=== PATIENT | female | born 1985 | race Caucasian/White ===

== ENCOUNTER 2023-03-09 21:48 | Emergency (ER) | payer MEDICAID, SELFPAY ==
[2023-03-09 21:56] VITALS: BP 144/96; PULSE 78; RESP 18; TEMP 35.9; O2SAT 100; BMI 25.8
--- NOTE | 2023-03-09 22:13 | ED.NAVMDI ---
HPI - Nausea/Vomiting/Diarrhea General Chief complaint: Nausea/Vomiting Stated complaint: Terrible flu symptoms Time Seen by Provider: 03/09/23 22:08 History of Present Illness HPI Narrative: This 37-year-old female comes in reporting recurrent nausea and vomiting over the past 2 or 3 hours. She thinks that she has vomited perhaps 20 times in this time frame. Prior to this she was feeling normal. She has a daughter who had some vomiting symptoms recently but otherwise does not know of any sick exposures. She does not report any fevers or dysuria symptoms. She does have some coughing but does not report any shortness of breath. Related Data Home Medications Medication Instructions Recorded Confirmed levonorgestrel 21 mcg/24 hours (8 1 device intrauterine ONCE 02/03/22 03/09/23 yrs) 52 mg intrauterine device (Mirena) Previous Rx's Medication Instructions Recorded lamotrigine 150 mg tablet 150 mg PO DAILY #90 tabs 01/21/23 levomilnacipran 80 mg capsule,24 80 mg PO DAILY #90 caps 01/21/23 hr,extended release (Fetzima) valacyclovir 500 mg tablet 500 mg PO BID #10 tabs 01/21/23 dextroamphetamine-amphetamine 20 30 mg (1.5 x 20 mg) PO BID #90 tabs 02/10/23 mg tablet Allergies Allergy/AdvReac Type Severity Reaction Status Date / Time codeine Allergy Severe airway Verified 07/14/22 11:15 swelling haloperidol Allergy Severe throat Verified 07/14/22 11:15 swelling dexamethasone Allergy Intermediate crawling Verified 07/14/22 11:15 out of her skin Penicillins Allergy Unknown Verified 07/14/22 11:15 Review of Systems Status of ROS: Reports: 10 or more systems reviewed and unremarkable except as noted in History and below Narrative: Constitutional: No fevers, no weight gain or loss. Eyes: No discharge. No vision changes. HENT: No congestion, no sore throat, no ear pain. Cardiovascular: No chest pain, no palpitations. Respiratory: No shortness of breath, no wheezes, no cough. Gastrointestinal: Diffuse upper epigastric abdominal pain related to vomiting. Frequent vomiting and nausea symptoms. No diarrhea. Genitourinary: No dysuria, no hematuria. Musculoskeletal: Normal range of motion. Skin: No rashes, no pruritis. Neurological: No dizziness, weakness, sensory change, speech change. Endo/Heme/Allergies: No bruising or bleeding. No polydipsia. Pysch: no suicidality, no anxiety, no insomnia. All other systems reviewed and are negative. [facility] Surgical History History of laparoscopy History of tonsillectomy Social History (Updated 01/21/23 @ 15:22 by Rosa Lewis ~ [facility], [facility]) What is your current living situation?: I presently have a place to live Problems where you live: no known problems In the past 12 months, utilities in danger of being shut off: no How hard is it for you to pay for the very basics like food, housing, medical care, and heating: not very hard In the past 12 mos, have been you worried that your food would run out before you had money to buy more?: never true In the past 12 mos, the food you bought just didn't last and you didn't have money to buy more?: never true Are you following a diet prescribed by a doctor: No Are you following a special diet: No Do you want help finding or keeping work or a job: I do not need or want help Smoking Status: Current every day smoker Second hand tobacco smoke exposure: Yes Non-prescribed substance use: denies use How often does anyone, including family, friends and others, physically hurt you: never How often does anyone, including family, friends and others, insult or talk down to you: never How often does anyone, including family, friends and others, threaten you with harm: never How often does anyone, including family, friends and others, scream or curse at you: never Little interest or pleasure in doing things: not at all Feeling down, depressed, or hopeless: not at all Exam Const: Vital Signs, click to edit/add: Vital Signs - 24 hr 03/09/23 21:56 Temperature 96.6 F L Pulse Rate [Pulse Oximeter] 78 Respiratory Rate 18 Blood Pressure [Ri ght Upper Arm] 144/96 H Pulse Oximetry 100 Oxygen Delivery Me thod Room Air Course Vital Signs Vital signs: Initial Vital Signs Temperature 96.6 F L 03/09/23 21:56 Temperature Source Temporal Artery Scan 03/09/23 21:56 Pulse Rate 78 03/09/23 21:56 Respiratory Rate 18 03/09/23 21:56 Blood Pressure 144/96 H 03/09/23 21:56 Blood Pressure Mean 112 H 03/09/23 21:56 Blood Pressure Position Sitting 03/09/23 21:56 Pulse Oximetry 100 03/09/23 21:56 Oxygen Delivery Method Room Air 03/09/23 21:56 Vital Signs Temperature 96.6 F L 03/09/23 21:56 Pulse Rate 78 03/09/23 21:56 Respiratory Rate 18 03/09/23 21:56 Blood Pressure 144/96 H 03/09/23 21:56 Pulse Oximetry 100 03/09/23 21:56 Oxygen Delivery Method Room Air 03/09/23 21:56 Temperature 96.6 F L 03/09/23 21:56 Pulse Rate 78 03/09/23 21:56 Respiratory Rate 18 03/09/23 21:56 Blood Pressure 144/96 H 03/09/23 21:56 Pulse Oximetry 100 03/09/23 21:56 Oxygen Delivery Method Room Air 03/09/23 21:56 MDM - Nausea/Vomiting/Diarrhea MDM Narrative Medical decision making narrative: This patient comes in with symptoms of persistent vomiting over the past several hours. An IV was established where she received a L of normal saline and 4 mg of Zofran. This brought great relief to her symptoms. Lab results returned with reassuring findings. Her sodium and potassium were just slightly low. She is okay to be discharged home. She requested something to help her sleep tonight so she did receive Benadryl 25 mg intravenously. A prescription for Zofran is provided from the [facility]. Lab Data Labs: Lab Results 03/09/23 Range/Units 22:30 WBC 8.46 (4.50-11.00) K/uL RBC 4.37 (4.00-5.20) m/uL Hgb 13.9 (12.0-16.0) gm/dL Hct 40.9 (33.0-51.0) % MCV 94 (80-100) fL MCH 32 (26-34) pg MCHC 34 (32-36) gm/dL RDW Coeff of [place] 13.9 (11.5-15.5) % Plt Count 193 (140-440) K/uL Neut % (Auto) 77.9 H (42.0-72.0) % Lymph % (Auto) 16.0 L (20-44) % [place] % (Auto) 4.7 (0.0-11.0) % Eos % (Auto) 0.4 (0.0-7.0) % Baso % (Auto) 0.2 (0.0-3.0) % Neut # (Auto) 6.60 (1.7-7.0) K/uL Lymph # (Auto) 1.40 (0.90-2.90) K/uL [place] # (Auto) 0.40 (0.00-0.90) K/UL Eos # (Auto) 0.03 (0.00-0.50) K/uL Baso # (Auto) 0.02 (0.00-0.30) K/uL Abs Immat Gran (auto) 0.07 (0.00-0.30) K/uL Imm/Tot Granulo (auto) 0.8 % Sodium 133 L (135-149) mmol/L Potassium 3.5 L (3.6-5.1) mmol/L Chloride 98 (96-114) mmol/L Carbon Dioxide 26 (20-32) mmol/L BUN 16 (5-24) mg/dL Creatinine 0.7 (0.5-1.5) mg/dL Estimated Creat Clear 105.97 Estimated GFR 113 ml/min Glucose 85 (60-115) mg/dL Calcium 8.6 (8.4-10.6) mg/dL Discharge Plan Discharge Clinical Impression: Gastroenteritis Patient Disposition: Home w/ Parent or Adult Condition: Improved Additional Instructions: Take liquids and increase diet as tolerated. Use Zofran as needed and directed for nausea symptoms. Follow up with MD or return if worsening. Prescriptions: No Action lamotrigine 150 mg tablet 150 mg PO DAILY Qty: 90 3RF Fetzima 80 mg capsule,extended release 24 hr 80 mg PO DAILY Qty: 90 3RF valacyclovir 500 mg tablet 500 mg PO BID Qty: 10 6RF Mirena 20 mcg/24 hours (7 yrs) 52 mg intrauterine device 1 device intrauterine ONCE Rx Instructions: as a single dose dextroamphetamine-amphetamine 20 mg tablet 30 mg PO BID Qty: 90 0RF Rx Instructions: administer doses at least 4-6 hours apart Follow Up/Referrals: Ab Alejo MD [Primary Care Provider] - Stand Alone Forms: [employer] Info Instructions
[2023-03-09] MEDS: 0.9 % SODIUM CHLORIDE 1000 ml 1,000 ML IV (22:32)
[2023-03-09] MEDS: ONDANSETRON 2 MG/ML inj 4 MG IVP (22:32)
[2023-03-09 22:40] LABS: Basophils Absolute Auto 0.02 K/uL (0.00-0.30); Basophils Percent Auto 0.2 % (0.0-3.0); Eosinophils Absolute Auto 0.03 K/uL (0.00-0.50); Eosinophils Percent Auto 0.4 % (0.0-7.0); Hematocrit 40.9 % (33.0-51.0); Hemoglobin* 13.9 gm/dL (12.0-16.0); Immature Granulocytes Abs Auto 0.07 K/uL (0.00-0.30); Immature Granulocytes Pct Auto 0.8 %; Mean Corpuscular HGB Conc 34 gm/dL (32-36); Mean Corpuscular Hemoglobin 32 pg (26-34); Mean Corpuscular Volume 94 fL (80-100); Monocytes Percent Auto 4.7 % (0.0-11.0); Neutrophils Percent Auto 77.9 % (42.0-72.0); Platelet Count* 193 K/uL (140-440); RDW Coefficient of Variation % 13.9 % (11.5-15.5); Red Blood Count 4.37 m/uL (4.00-5.20); White Blood Count* 8.46 K/uL (4.50-11.00)
[2023-03-09 22:42] LABS: Slide Review Reflex No
[2023-03-09 22:54] LABS: Sodium* 133 mmol/L (135-149)
[2023-03-09 22:57] LABS: Blood Urea Nitrogen* 16 mg/dL (5-24); Creatinine* 0.7 mg/dL (0.5-1.5); Est. Creatinine Clearance* 105.97; Estimated Glomerular Filt Rate 113 ml/min
[2023-03-09 23:29] LABS: Calcium* 8.6 mg/dL (8.4-10.6); Carbon Dioxide* 26 mmol/L (20-32); Chloride* 98 mmol/L (96-114); Glucose* 85 mg/dL (60-115); Potassium* 3.5 mmol/L (3.6-5.1)
[2023-03-09] MEDS: diphenhydrAMINE 50 MG/ML inj 25 MG IVP (23:47)
== END 2023-03-09 23:52 | disposition home or self-care (01) ==
PROVIDERS: Emergency Provider Emergency Medicine Emergency Medical Services; PCP Family Medicine
DX: K52.9 Noninfective gastroenteritis and colitis, unspecified (principal)
CPT/HCPCS: 36415; 80048; 85025; 96374; 96375; 99283; 99284; J1200; J2405; J7030

== ENCOUNTER 2023-06-30 11:44 | Emergency (ER) | payer MEDICAID, SELFPAY ==
[2023-06-30 11:56] VITALS: BP 130/90; PULSE 88; RESP 18; TEMP 36.8; O2SAT 98; BMI 25.1
--- NOTE | 2023-06-30 12:57 | ED_ITS ---
HPI - General Adult General Time Seen by Provider: 12:57 Date Seen: 06/30/23 Chief complaint: Nausea/Vomiting Stated complaint: nausea / vomiting Time Seen by Provider: 06/30/23 11:46 Source: patient Mode of arrival: ambulatory Limitations: no limitations History of Present Illness HPI narrative: Patient is a 37 year old female who has got nausea and vomiting over the last few weeks. She has history of ADD depression endometriosis, and has had nausea and vomiting over the last few weeks. She can associated with anything. She has got some sore abdomen from retching but otherwise has no abdominal pain, no fever, no hematuria, no dysuria, no melena hematochezia or diarrhea. The patient has been able to eat. She presents to ER for evaluation. She denies pr egnancy. Related Data Home Medications Medication Instructions Recorded Confirmed levonorgestrel 21 mcg/24 hours (8 1 device intrauterine ONCE 02/03/22 06/30/23 yrs) 52 mg intrauterine device (Mirena) Previous Rx's Medication Instructions Recorded lamotrigine 150 mg tablet 150 mg PO DAILY #90 tabs 01/21/23 levomilnacipran 80 mg capsule,24 80 mg PO DAILY #90 caps 01/21/23 hr,extended release (Fetzima) valacyclovir 500 mg tablet 500 mg PO BID #10 tabs 01/21/23 dextroamphetamine-amphetamine 20 30 mg (1.5 x 20 mg) PO BID #90 tabs 06/11/23 mg tablet ondansetron 4 mg disintegrating 4 mg PO Q8H PRN nausea and 06/30/23 tablet vomiting 4 days #7 tabs Allergies Allergy/AdvReac Type Severity Reaction Status Date / Time codeine Allergy Severe airway Verified 07/14/22 11:15 swelling haloperidol Allergy Severe throat Verified 07/14/22 11:15 swelling dexamethasone Allergy Intermediate crawling Verified 07/14/22 11:15 out of her skin Penicillins Allergy Unknown Verified 07/14/22 11:15 Review of Systems Status of ROS: Reports: 6 or more systems reviewed and unremarkable except as noted in History and below [facility] Surgical History History of tonsillectomy ?Z90.89 - Acquired absence of other organs (ICD-10) History of laparoscopy ?Z98.890 - Other specified postprocedural states (ICD-10) Social History What is your current living situation?: I presently have a place to live Problems where you live: no known problems In the past 12 months, utilities in danger of being shut off: no In past 12 months, lack of transportation kept you from medical appts, meetings, work, or getting things needed for daily living: no How hard is it for you to pay for the very basics like food, housing, medical care, and heating: not very hard In the past 12 mos, have been you worried that your food would run out before you had money to buy more?: never true In the past 12 mos, the food you bought just didn't last and you didn't have money to buy more?: never true Are you following a diet prescribed by a doctor: No Are you following a special diet: No Do you want help finding or keeping work or a job: I do not need or want help Smoking Status: Current every day smoker Second hand tobacco smoke exposure: Yes How often do you have a drink containing alcohol: 2-4 times a month How often do you have six or more drinks on one occasion: Never AUDIT-C Alcohol total score: 2 Non-prescribed substance use: denies use How often does anyone, including family, friends and others, physically hurt you : never How often does anyone, including family, friends and others, insult or talk down to you: never How often does anyone, including family, friends and others, threaten you with harm: never How often does anyone, including family, friends and others, scream or curse at you: never Little interest or pleasure in doing things: not at all Feeling down, depressed, or hopeless: not at all Exam Narrative: Exam Narrative: Objective: Vital signs are normal, no fever Patient is awake, alert, and non distress. HEENT is unremarkable mouth well hydrated neck is supple Chest is clear Pulses regular Abdomen benign soft nontender Extremities are no edema neurologic nonfocal Skin periphery is warm and dry. Const: Vital Signs, click to edit/add: Vital Signs - 24 hr 06/30/23 11:56 06/30/23 13:33 06/30/23 15:06 Temperature 98.3 F Pulse Rate [Right Pulse Oximeter] 88 90 79 Respiratory Rate 18 Blood Pressure [Ri ght Upper Arm] 130/90 H 136/93 H 137/85 Pulse Oximetry 98 97 99 Oxygen Delivery Me thod Room Air Room Air Room Air Course Vital Signs Vital signs: Initial Vital Signs Temperature 98.3 F 06/30/23 11:56 Temperature Source Temporal Artery Scan 06/30/23 11:56 Pulse Rate 88 06/30/23 11:56 Respiratory Rate 18 06/30/23 11:56 Blood Pressure 130/90 H 06/30/23 11:56 Blood Pressure Mean 103 06/30/23 11:56 Blood Pressure Position Sitting 06/30/23 11:56 Pulse Oximetry 98 06/30/23 11:56 Oxygen Delivery Method Room Air 06/30/23 11:56 Vital Signs Temperature 98.3 F 06/30/23 11:56 Pulse Rate 88 06/30/23 11:56 Respiratory Rate 18 06/30/23 11:56 Blood Pressure 130/90 H 06/30/23 11:56 Pulse Oximetry 98 06/30/23 11:56 Oxygen Delivery Method Room Air 06/30/23 11:56 Temperature 98.3 F 06/30/23 11:56 Pulse Rate 79 06/30/23 15:06 Respiratory Rate 18 06/30/23 11:56 Blood Pressure 137/85 06/30/23 15:06 Pulse Oximetry 99 06/30/23 15:06 Oxygen Delivery Method Room Air 06/30/23 15:06 Medications Administered Medications: Discontinued Medications Generic Name Dose Route Start Last Admin Trade Name Freq PRN Reason Stop Dose Admin Sodium Chloride 1,000 mls @ 6,000 mls/hr 06/30/23 13:45 06/30/23 14:41 0.9 % Sodium Chloride 1000 Ml IV 06/30/23 13:54 Infused .Q10M [facility]ADYS Infusion Ondansetron HCl 4 mg 06/30/23 13:32 06/30/23 14:02 Ondansetron 2 Mg/Ml Inj IVP 06/30/23 13:33 4 mg ONCE ONE Administration Medical Decision Making [facility] Narrative Medical decision making narrative: 37-year-old female with nausea and vomiting intermittent over a few weeks. Unclear etiology. Patient really has no abdominal pain, no weight loss, no worrisome symptoms. I think at this time some IV fluids some IV Zofran laboratory studies including urinalysis be appropriate and test. D isposition pending findings above. She was comfortable this assessment. Addendum 2:53 p.m. the patient feels markedly better. Will come fax in some Zofran for her to have at home, her labs look reassuring, including negative CRP, normal liver function tests, CBC looks unremarkable, ER profile unremarkable, test negative. Urine test is pending as well as viral studies. Think we can let her go home with some Zofran we can call her with the result viral as study results in the urinalysis. Recommend recheck with regular doctor for continued assessment of her intermittent nausea and vomiting. Lab Data Labs: Lab Results 06/30/23 Range/Units 13:45 WBC 5.44 (4.50-11.00) K/uL RBC 4.24 (4.00-5.20) m/uL Hgb 13.4 (12.0-16.0) gm/dL Hct 40.3 (33.0-51.0) % MCV 95 (80-100) fL MCH 32 (26-34) pg MCHC 33 (32-36) gm/dL RDW Coeff of Jairo 13.4 (11.5-15.5) % Plt Count 272 (140-440) K/uL Neut % (Auto) 58.8 (42.0-72.0) % Lymph % (Auto) 32.5 (20-44) % [place] % (Auto) 6.1 (0.0-11.0) % Eos % (Auto) 1.8 (0.0-7.0) % Baso % (Auto) 0.6 (0.0-3.0) % Neut # (Auto) 3.20 (1.7-7.0) K/uL Lymph # (Auto) 1.77 (0.90-2.90) K/uL [place] # (Auto) 0.30 (0.00-0.90) K/UL Eos # (Auto) 0.10 (0.00-0.50) K/uL Baso # (Auto) 0.03 (0.00-0.30) K/uL Abs Immat Gran (auto) 0.01 (0.00-0.30) K/uL Imm/Tot Granulo (auto) 0.2 % Sodium 136 (135-149) mmol/L Potassium 4.0 (3.6-5.1) mmol/L Chloride 104 (96-114) mmol/L Carbon Dioxide 25 (20-32) mmol/L Anion Gap 7 (7-15) mEq/L BUN 10 (5-24) mg/dL Creatinine 0.7 (0.5-1.5) mg/dL Estimated Creat Clear 105.97 Estimated GFR 113 ml/min Glucose 77 (60-115) mg/dL Calcium 8.4 (8.4-10.6) mg/dL Total Bilirubin 0.6 (0.1-1.5) mg/dL Direct Bilirubin 0.0 (0.0-0.5) mg/dL AST 21 (12-35) U/L ALT 12 (4-35) U/L Alkaline Phosphatase 72 (40-150) U/L C-Reactive Protein < 0.5 L (0.5-1.0) mg/dL Total Protein 7.2 (6.0-8.3) g/dL Albumin 4.3 (3.3-5.0) g/dL Amylase 92 H (18-89) U/L HCG, Qual Negative (Negative) SARS-CoV-2 (PCR) Negative SARS-CoV-2 (Negative) Influenza Type A (PCR) Negative PCR FLU A (Negative) Influenza Type B (PCR) Negative PCR FLU B (Negative) RSV (PCR) Negative PCR RSV (Negative) Discharge Plan Discharge Clinical Impression: Nausea & vomiting Patient Disposition: Home, Self-Care Condition: Improved Additional Instructions: Light activity, off work for 2 days, Zofran as needed for nausea, light diet. Recommend recheck with regular doctor in 3-4 days for reassessment, sooner return to ED as problems or concerns. We can call you back with your viral studies. Activity Level: Light activity Discharge Diet: Full Liquid Diet Detail: Advance diet as tolerated Prescriptions: New ondansetron 4 mg tablet,disintegrating 4 mg PO Q8H PRN (Reason: nausea and vomiting) 4 Days Qty: 7 0RF No Action lamotrigine 150 mg tablet 150 mg PO DAILY Qty: 90 3RF Fetzima 80 mg capsule,extended release 24 hr 80 mg PO DAILY Qty: 90 3RF valacyclovir 500 mg tablet 500 mg PO BID Qty: 10 6RF Mirena 20 mcg/24 hours (7 yrs) 52 mg intrauterine device 1 device intrauterine ONCE Rx Instructions: as a single dose dextroamphetamine-amphetamine 20 mg tablet 30 mg PO BID Qty: 90 0RF Rx Instructions: administer doses at least 4-6 hours apart Follow Up/Referrals: Ab Alejo MD [Primary Care Provider] - Stand Alone Forms: [employer] Info Instructions
[2023-06-30 13:33] VITALS: BP 136/93; PULSE 90; O2SAT 97
[2023-06-30 13:58] LABS: Basophils Absolute Auto 0.03 K/uL (0.00-0.30); Basophils Percent Auto 0.6 % (0.0-3.0); Eosinophils Percent Auto 1.8 % (0.0-7.0); Hematocrit 40.3 % (33.0-51.0); Hemoglobin* 13.4 gm/dL (12.0-16.0); Immature Granulocytes Abs Auto 0.01 K/uL (0.00-0.30); Immature Granulocytes Pct Auto 0.2 %; Lymphocytes Absolute Auto 1.77 K/uL (0.90-2.90); Lymphocytes Percent Auto 32.5 % (20-44); Mean Corpuscular HGB Conc 33 gm/dL (32-36); Mean Corpuscular Hemoglobin 32 pg (26-34); Mean Corpuscular Volume 95 fL (80-100); Monocytes Percent Auto 6.1 % (0.0-11.0); Neutrophils Percent Auto 58.8 % (42.0-72.0); Platelet Count* 272 K/uL (140-440); RDW Coefficient of Variation % 13.4 % (11.5-15.5); Red Blood Count 4.24 m/uL (4.00-5.20); White Blood Count* 5.44 K/uL (4.50-11.00)
[2023-06-30] MEDS: ONDANSETRON 2 MG/ML inj 4 MG IVP (14:02)
[2023-06-30] MEDS: 0.9 % SODIUM CHLORIDE 1000 ml 1,000 ML 6000 ML IV (14:02)
[2023-06-30 14:07] LABS: Slide Review Reflex No
[2023-06-30 14:10] LABS: Chloride* 104 mmol/L (96-114)
[2023-06-30 14:11] LABS: Albumin* 4.3 g/dL (3.3-5.0); Sodium* 136 mmol/L (135-149)
[2023-06-30 14:13] LABS: Amylase* 92 U/L (18-89)
[2023-06-30 14:14] LABS: Alkaline Phosphatase* 72 U/L (40-150); Anion Gap 7 mEq/L (7-15); Aspartate Amino Transferase* 21 U/L (12-35); Bilirubin Total* 0.6 mg/dL (0.1-1.5); Blood Urea Nitrogen* 10 mg/dL (5-24); Carbon Dioxide* 25 mmol/L (20-32); Creatinine* 0.7 mg/dL (0.5-1.5); Est. Creatinine Clearance* 105.97; Estimated Glomerular Filt Rate 113 ml/min; Glucose* 77 mg/dL (60-115); Total Protein* 7.2 g/dL (6.0-8.3)
[2023-06-30 14:15] LABS: Alanine Aminotransferase* 12 U/L (4-35); Calcium* 8.4 mg/dL (8.4-10.6)
[2023-06-30 14:19] LABS: C Reactive Protein* < 0.5 mg/dL (0.5-1.0)
[2023-06-30 14:25] LABS: HCG Qualitative Serum* Negative (Negative)
[2023-06-30 14:32] LABS: PCR FLU A Negative PCR FLU A (Negative); PCR FLU B Negative PCR FLU B (Negative); PCR RSV Negative PCR RSV (Negative)
[2023-06-30 14:53] LABS: Appearance Urine Cloudy (Clear); Bilirubin Urine Negative (Negative); Blood Urine Trace-intact (Negative); Color Urine Yellow (Yellow); Glucose Urine Negative (Negative); Ketones Urine Negative (Negative); Leukocyte Esterase Urine Negative (Negative); Nitrite Urine Negative (Negative); Protein Urine Negative (Negative); pH Urine 7.5 (5.0-8.5)
[2023-06-30 15:06] VITALS: BP 137/85; PULSE 79; O2SAT 99
--- NOTE | 2023-06-30 15:11 | ED.NURSE ---
discharge instructions updated after pt was discharged, information writer called pt and left voicemail asking to call the information writer back.
[2023-06-30 15:12] LABS: SARS PCR* Negative SARS-CoV-2 (Negative)
[2023-06-30 15:22] LABS: Amorphous Sediment Urine Many; Bacteria Urine Few; Mucus Urine Few; Squamous Epithelial Cell Urine Few (None-Few)
--- NOTE | 2023-06-30 15:36 | ED.NURSE ---
pt called back, fiction writer notified pt of new discharge instructions and that there is a RX available for fruit picker at preferred pharmacy
== END 2023-06-30 15:07 | disposition home or self-care (01) ==
PROVIDERS: Emergency Provider Family Medicine; PCP Family Medicine
DX: R11.2 Nausea with vomiting, unspecified (principal)
CPT/HCPCS: 36415; 80048; 80076; 81001; 82150; 84703; 85025; 86140; 87086; 87631; 96374; 99283; 99284; J2405; J7030

== ENCOUNTER 2023-09-23 13:07 | Emergency (ER) | payer MEDICAID, SELFPAY ==
[2023-09-23 13:15] VITALS: BP 142/95; PULSE 95; RESP 18; TEMP 36.4; O2SAT 98; BMI 25.1
[2023-09-23 14:05] LABS: PCR FLU A Negative PCR FLU A (Negative); PCR FLU B POSITIVE PCR FLU B (Negative); PCR RSV Negative PCR RSV (Negative); SARS PCR* Negative SARS-CoV-2 (Negative)
--- NOTE | 2023-09-27 10:39 | ED_ITS ---
HPI - General Adult General Date Seen: 09/27/23 Chief complaint: Fever Stated complaint: body aches, fever, cough Time Seen by Provider: 09/23/23 14:10 Source: patient Mode of arrival: ambulatory Limitations: no limitations History of Present Illness HPI narrative: Patient is a 37-year-old with a 5 day history of flu symptoms, her daughter has influenza and she wanted to be tested. No significant shortness of breath, eating and drinking okay, no other complaints. Related Data Home Medications Medication Instructions Recorded Confirmed levonorgestrel 21 mcg/24 hours (8 1 device intrauterine ONCE 02/03/22 08/16/23 yrs) 52 mg intrauterine device (Mirena) Previous Rx's Medication Instructions Recorded lamotrigine 150 mg tablet 150 mg PO DAILY #90 tabs 01/21/23 levomilnacipran 80 mg capsule,24 80 mg PO DAILY #90 caps 01/21/23 hr,extended release (Fetzima) valacyclovir 500 mg tablet 500 mg PO BID #10 tabs 01/21/23 ondansetron 4 mg disintegrating 4 mg PO Q8H PRN nausea and 06/30/23 tablet vomiting 4 days #7 tabs montelukast 10 mg tablet 10 mg PO QDAY #30 tabs 08/30/23 dextroamphetamine-amphetamine 20 30 mg (1.5 x 20 mg) PO BID #90 tabs 09/08/23 mg tablet Allergies Allergy/AdvReac Type Severity Reaction Status Date / Time codeine Allergy Severe airway Verified 08/16/23 12:57 swelling haloperidol Allergy Severe throat Verified 08/16/23 12:57 swelling dexamethasone Allergy Intermediate crawling Verified 08/16/23 12:57 out of her skin Penicillins Allergy Unknown Verified 08/16/23 12:57 PFSH PFS Surgical History History of tonsillectomy ?Z90.89 - Acquired absence of other organs (ICD-10) History of laparoscopy ?Z98.890 - Other specified postprocedural states (ICD-10) Social History What is your current living situation?: I presently have a place to live Problems where you live: no known problems In the past 12 months, utilities in danger of being shut off: no In past 12 months, lack of transportation kept you from medical appts, meetings, work, or getting things needed for daily living: no How hard is it for you to pay for the very basics like food, housing, medical care, and heating: not very hard In the past 12 mos, have been you worried that your food would run out before you had money to buy more?: never true In the past 12 mos, the food you bought just didn't last and you didn't have money to buy more?: never true Are you following a diet prescribed by a doctor: No Are you following a special diet: No Do you want help finding or keeping work or a job: I do not need or want help Smoking Status: Current every day smoker Second hand tobacco smoke exposure: Yes How often do you have a drink containing alcohol: 2-4 times a month How often do you have six or more drinks on one occasion: Never AUDIT-C Alcohol total score: 2 Non-prescribed substance use: denies use How often does anyone, including family, friends and others, physically hurt you : never How often does anyone, including family, friends and others, insult or talk down to you: never How often does anyone, including family, friends and others, threaten you with harm: never How often does anyone, including family, friends and others, scream or curse at you: never Little interest or pleasure in doing things: not at all Feeling down, depressed, or hopeless: not at all Exam Narrative: Exam Narrative: Vital signs as noted above. In general, an alert, well-appearing patient. Head: Normocephalic, atraumatic. Eyes: Pupils are equal reactive. Extraocular movements are full. Conjunctivae are normal. ENT: Mucous membranes are moist. Throat is normal. Neck: Supple without lymphadenopathy. Heart: Regular rate and rhythm. No murmur or rub. Lungs: Clear bilaterally. No increased work of breathing, crackles or wheezes. Neurologic: Patient is alert and oriented to person and place. Speech is fluent. Face is symmetric. Moves all extremities equally. Affect: Normal. Skin: Warm and dry. Well perfused. Course Course ED Course: Viral swab positive for influenza B. Outside the window of treatment. Supportive care, return for worsening, anticipate gradual improvement over the next week. Vital Signs Vital signs: Initial Vital Signs Temperature 97.5 F L 09/23/23 13:15 Temperature Source Temporal Artery Scan 09/23/23 13:15 Pulse Rate 95 09/23/23 13:15 Respiratory Rate 18 09/23/23 13:15 Blood Pressure 142/95 H 09/23/23 13:15 Blood Pressure Mean 110 H 09/23/23 13:15 Blood Pressure Position Sitting 09/23/23 13:15 Pulse Oximetry 98 09/23/23 13:15 Oxygen Delivery Method Room Air 09/23/23 13:15 Vital Signs Temperature 97.5 F L 09/23/23 13:15 Pulse Rate 95 09/23/23 13:15 Respiratory Rate 18 09/23/23 13:15 Blood Pressure 142/95 H 09/23/23 13:15 Pulse Oximetry 98 09/23/23 13:15 Oxygen Delivery Method Room Air 09/23/23 13:15 Temperature 97.5 F L 09/23/23 13:15 Pulse Rate 95 09/23/23 13:15 Respiratory Rate 18 09/23/23 13:15 Blood Pressure 142/95 H 09/23/23 13:15 Pulse Oximetry 98 09/23/23 13:15 Oxygen Delivery Method Room Air 09/23/23 13:15 Medical Decision Making Lab Data Labs: Lab Results 09/23/23 Range/Units 13:20 SARS-CoV-2 (PCR) Negative SARS-CoV-2 (Negative) Influenza Type A (PCR) Negative PCR FLU A (Negative) Influenza Type B (PCR) POSITIVE PCR FLU B A (Negative) RSV (PCR) Negative PCR RSV (Negative) Discharge Plan Discharge Clinical Impression: Influenza Patient Disposition: Home, Self-Care Condition: Stable Instructions: Influenza (DC) Additional Instructions: Ibuprofen and/or Tylenol as needed for fever, aches etcetera. Primary care follow-up if no improvement over the next 7-10 days, sooner for worsening. Prescriptions: No Action lamotrigine 150 mg tablet 150 mg PO DAILY Qty: 90 3RF Fetzima 80 mg capsule,extended release 24 hr 80 mg PO DAILY Qty: 90 3RF valacyclovir 500 mg tablet 500 mg PO BID Qty: 10 6RF ondansetron 4 mg tablet,disintegrating 4 mg PO Q8H PRN (Reason: nausea and vomiting) 4 Days Qty: 7 0RF Mirena 20 mcg/24 hours (7 yrs) 52 mg intrauterine device 1 device intrauterine ONCE Rx Instructions: as a single dose montelukast 10 mg tablet 10 mg PO QDAY Qty: 30 6RF dextroamphetamine-amphetamine 20 mg tablet 30 mg PO BID Qty: 90 0RF Rx Instructions: administer doses at least 4-6 hours apart Follow Up/Referrals: Ab Alejo MD [Primary Care Provider] - Stand Alone Forms: [facility] Info Instructions
== END 2023-09-23 14:26 | disposition home or self-care (01) ==
LOC: ED 14:23
PROVIDERS: Emergency Provider Emergency Medicine; PCP Family Medicine
DX: J10.1 Influenza due to other identified influenza virus with other respiratory manifestations (principal)
CPT/HCPCS: 87631; 99283

== ENCOUNTER 2023-11-17 09:41 | Outpatient (CLI) | payer MEDICAID, SELFPAY ==
--- OUTSIDE RECORDS SUMMARY | 2023-11-17 09:49 | XMS_ITS | Clinical Summary ---
Author Name Unknown Organization [facility] Address [address] [place] [address] Care Team Providers Care Visual C Developer Name Role Phone Oliva Boyce MD Primary Care Provider [phone] Allergies Active Allergy Reactions Criticality Noted Date Comments Lorazepam Swelling 07/30/2017 Codeine Sulfate Swelling 10/14/2010 Throat swells Haloperidol Other (See Comments) 01/05/2017 Confusion and breathing concerns Penicillins 02/09/2007 Medications Medication Sig Dispensed Refills Start Date End Date Status levonorgestrel (MIRENA) 20 MCG/24HR IUDIndications:Enc ounter for IUD insertion 1 each (20 mcg) by Intrauterine route continuous [id number] 01/08/2017 Active FETZIMA 40 MG 24 hr capsuleIndications :Mood disorder (H24) Take 2 capsules (80 mg) by mouth daily 60 capsule 1 02/18/2017 Active lamoTRIgine (LAMICTAL) 150 MG tablet Take 75 mg by mouth daily 04/01/2017 Active potassium chloride SA (K-DUR/KLOR-CON M) 20 MEQ CR tabletIndications: Hypokalemia TAKE 1 TABLET(20 MEQ) BY MOUTH TWICE DAILY 60 tablet 05/26/2017 Active LORAZEPAM PO Active Active Problems Problem Noted Date Diagnosed Date Alcohol withdrawal 07/27/2017 Anxiety 07/27/2017 Chemical dependency 07/26/2017 BV (bacterial vaginosis) 09/08/2016 Health [facility] 11/08/2015 Abnormal electrocardiography 06/15/2014 Alcohol use disorder, severe, dependence 014 Purging (H28) 09/21/2013 Bulimia nervosa (H28) 09/21/2013 ALVAREZ II (cervical intraepithelial neoplasia II) 0 11/08/2012 Smoker 10/14/2012 Mirena IUD insertion 12/09/2011 Overview: Lot # [id number] Remove November 2016 Problem list name updated by automated process. Provider to review and confirm Mild recurrent major depression (H24) 01/23/2011 ALVAREZ III (cervical intraepithelial neoplasia III) 10/15/2010 Overview: 10/03/10 LSIL pap, colpo ALVAREZ I,II,III S/p LEEP in 10/03 pos for ALVAREZ 2 w neg margins 01/20/11 ASCUS pap Positive HPV. Pt to have colp post . EDC 07/05/1111/04 ASCUS ,+HPV, undetermined risk 02/03 ASCUS,+HPV, undetermined risk, colpo ALVAREZ I. Repeat pap & colp in 6 months 10/05 Pap Ascus +HPV 58, [place] ALVAREZ I-II 11/05 LEEP ALVAREZ I-II, + margins, in reminders for colp in 4-6 months per ASCCP guidelines 01/01/14 Dx pap NIL. HPV Neg. [place] ALVAREZ I. Plan: [place] in 6 months 08/2014: NIL pap, neg HPV. [place] - no dysplasia. Plan cotest in 1 yr. Tracking started. 01/05/17 NIL, Neg HPV. Plan 1 yr co-test per visit notes 08/29/18 Patient is lost to pap tracking follow-up. Cystic acne 02/21/2010 CARDIOVASCULAR SCREENING; LDL GOAL LESS THAN 160 09/04/2009 Panic disorder 08/28/2008 Overview: Suicide attempt in 2003. Resolved Problems Problem Noted Date Diagnosed Date Resolved Date Mild major depression 09/20/20132016 Attention deficit disorder 09/20/2013 0 02/19/2017 Overview: Problem list name updated by automated process. Provider to review Marginal placenta previa 02/05/2011 Overview: By U/S at 18 wks Resolved on U/S 05/07/11 Encounter for supervision of other normal 01/23/2011 11/03/2011 Overview: Diagnosis updated by automated process. Provider to review and confirm. Smoking complicating pregnan cy, childbirth, or the puerperium 01/20/2011 12/09/2011 Immunizations Name Administration Dates Next Due Influenza (IIV3) PF 06/29/2011,04/07/2010 Influenza Vaccine >6 months,quad, PF 06/09/2016, 08/01/2014 TDAP Vaccine (Adacel) 06/28/2011 Family History Medical History Relation Comments Anxiety Disorder Daughter 1 Depression Daughter 1 Anxiety Disorder Father Depression Father Anxiety Disorder Maternal Grandfather Bipolar Disorder Maternal Grandfather Depression Maternal Grandfather Heart Disease Maternal Grandfather Hypertension Maternal Grandfather Substance Abuse Maternal Grandfather Anxiety Disorder Maternal Grandmother Bipolar Disorder Maternal Grandmother Depression Maternal Grandmother Substance Abuse Maternal Grandmother Anxiety Disorder Mother Bipolar Disorder Mother Depression Mother Substance Abuse Mother Substance Abuse Paternal Grandfather Substance Abuse Paternal Grandmother Anxiety Disorder Sister 3 Bipolar Disorder Sister 3 Depression Sister 3 Substance Abuse Sister 3 Anxiety Disorder Sister 4 Depression Sister 4 Relation Status Comments Daughter 1 Alive Daughter 2 Alive Father Alive Maternal Grandfather Maternal Grandmother Mother Alive Paternal Grandfather Paternal Grandmother Sister 1 Alive Sister 2 Alive Sister 3 Sister 4 Social History Tobacco Use Types Packs/Day Years Used Date Smoking Tobacco: Some Days Cigarettes 1 15 Smokeless Tobacco: Former Tobacco Cessation:Ready to Q uit: No Alcohol Use Standard Drinks/Week Comments Yes 0 (1 standard drink = 0.6 oz pure alcohol) 1 Liter of Vodka for past 5 weeks PHQ-2 Answer Date Recorded PHQ-2 Score 2 08/02/2018 Sex and Gender Information Value Date Recorded Sex Assigned at Not on file Gender Identity Not on file Sexual Orientation Not on file Last Filed Vital Signs Vital Sign Reading Time Taken Comments Blood Pressure 91/75 08/12/2017 12:46 PM SENIOR GRANT WRITER Pulse 57 08/12/2017 12:46 PM SENIOR GRANT WRITER Temperature 36.8 ??C (98.3 ??F) 07/31/2017 4:25 PM CS T Respiratory Rate 24 07/31/2017 7:03 PM SENIOR GRANT WRITER Oxygen Saturation 100% 07/31/2017 7:03 PM SENIOR GRANT WRITER Inhaled Oxygen Concentration - - Weight 58.9 kg (129 lb 12.8 oz) 018 12:46 PM SENIOR GRANT WRITER Height 170.2 cm (5' 7) 08/12/2017 12:4 6 PM SENIOR GRANT WRITER Body Mass Index 20.33 08/12/2017 12:46 PM SENIOR GRANT WRITER Plan of Treatment Not on file Advance Directives For more information, please contact: [phone] * Full Code (Latest Code Status on File) Date Activated Date Inactivated Comments 07/26/2017 8:34 PM 07/28/2017 2:00 PM Care Teams Visual C Developer Relationship Specialty Start Date End Date Oliva Boyce MD [facility] [facility] [address] [place], [place] [address] PCP - General Internal Medicine 11/26/15
--- OUTSIDE RECORDS SUMMARY | 2023-11-17 09:49 | XMS_ITS | Encounter Summary ---
Author Name Unknown Organization [facility] Address [facility] [place] [address] Care Team Providers Care Detail Drafter Name Role Phone Oliva Boyce MD Primary Care Provider [phone] Evin Tavarez MD Primary Care Provider [phone] Oliva Boyce MD Primary Care Provider [phone] Tracee Omalley APRN PENSION MANAGER Unavailable Oliva Boyce MD Unavailable [phone] Oliva Boyce MD Unavailable [phone] Oanh Castorena MD Unavailable + Oliva Boyce MD Unavailable [phone] Encounter Details Date Type Department Care Team (Late st Contact Info) Description 09/28/2014 [facility] Medical Advice [facility] [address] [place] [phone] Scarlett Nunn APRN PENSION MANAGER [address] [address] [place] [address] Social History Tobacco Use Types Packs/Day Years Used Date Smoking Tobacco: Some Days Cigarettes 0.5 10 Smokeless Tobacco: Never Alcohol Use Standard Drinks/Week Comments No 0 (1 standard drink = 0.6 oz pur e alcohol) Sex and Gender Information Value Date Recorded Sex Assigned at Not on file Gender Identity Not on file Sexual Orientation Not on file documented as of this encounter Plan of Treatment Not on file documented as of this encounter Visit Diagnoses Not on filedocumented in this encounter Care Teams Detail Drafter Relationship Specialty Start Date End Date Oliva Boyce MD [address] [place] [address] [place] [address] PCP - General Internal Medicine 09/20/13 11/06/15 Evin Tavarez MD [address] [place] [address] [place] [address] PCP - General Internal Medicine 11/07/15 11/25/15 Oliva Boyce MD [address] [place] [address] [place] [address] PCP - General Internal Medicine 11/26/15 Tracee Omalley APRN PENSION MANAGER [address] [place] [address] [place] [address] PCP - Assigned PCP 01/23/18 08/13/18 Oliva Boyce MD [address] [place] [address] [place] [address] PCP - Assigned PCP 08/14/18 09/27/18 Oliva Boyce MD [address] [place] [address] [place] [address] Assigned PCP 08/14/18 12/17/18 Oanh Castorena MD [facility] [address] [place] [address] Assigned PCP 12/18/18 07/29/19 Oliva Boyce MD [address] [facility] [place] [address] Assigned PCP 07/30/19 01/20/20 documented as of this encounter
--- OUTSIDE RECORDS SUMMARY | 2023-11-17 09:49 | XMS_ITS | Encounter Summary ---
Author Name Unknown Organization [facility] Address [address] [place] [address] Care Team Providers Care Director Corporate Compliance Name Role Phone Oliva Boyce MD Primary Care Provider [phone] Tracee Omalley APRN FRUIT DRYER Unavailable Oliva Boyce MD Unavailable [phone] Oliva Boyce MD Unavailable [phone] Oanh Castorena MD Unavailable + Oliva Boyce MD Unavailable [phone] Reason for Visit * Reason Onset Date Comments [facility] 07/27/2017 pt seeking lodgi ng Encounter Details Date Type Department Care Team (Late st Contact Info) Description 07/27/2017 Telephone [facility] Behavioral Health Intake [address] [place] [phone] Generic, Behavioral Intake, [facility] (pt seeking lodging) Social History Tobacco Use Types Packs/Day Years Used Date Smoking Tobacco: Some Days Cigarettes 0.5 10 Smokeless Tobacco: Former Alcohol Use Standard Drinks/Week Comments Yes 0 (1 standard drink = 0.6 oz pur e alcohol) Sex and Gender Information Value Date Recorded Sex Assigned at Not on file Gender Identity Not on file Sexual Orientation Not on file documented as of this encounter Miscellaneous Notes * Telephone Encounter - Radha Leija LADC - 08/18/2017 10:58 AM CST I called and left voicemail asking her to call back to discuss other treatment option. She called me back and confirmed my email and sent signed KIM. I faxed her evaluation to [facility]. ERMAKER WELDER * Telephone Encounter - Radha Leija LADC - 08/17/2017 5:09 PM CST Alana called and left voicemail stating that she had difficulty emailing me the KIM. I called her back. A child answered and said she was sleeping. I said I would call back later. ERMAKER WELDER * Telephone Encounter - Radha Leija LADC - 08/16/2017 4:25 PM CST Patient called and left voicemail. I called back and left voicemail asking her to call to discuss recommendations. She called back and I explained recommendation for co-occurring residential treatment. She requested [facility]. I securely emailed her KIM to sign and return. ERMAKER WELDER * Telephone Encounter - Park Morrissey - 08/09/2017 4:12 PM CST 08-09-17 Client called to reschedule today's eval for 08-12-17 @ 1245. fb ERMAKER WELDER * Telephone Encounter - Gato Alston - 08/05/2017 11:09 AM CST Reached out to patient, reviewed concerns of appropriateness to lodging based on recent events (seenotes per felipe) and that pt would need to be sober for evaluation. reitterated to pt that [facility] couldprovide eval for screening of lodging, but admission is not guaranteed pending staffing with elena Polo. Pt agrees to eval on 08/09/17. Pt understands she will need to be sober at time of eval. ERMAKER WELDER * Telephone Encounter - Felipe Hein, [facility] - 08/05/2017 10:03 AM BOILERMAKER WELDER 08/05/2017 I received a tel call from Edin in intake today to review Alana for LP. Per the EMR, Maru was admitted to 07/26/17 and left AMA as she was demanding more benzo's than her detox warranted. She was very angry and abusive to staff. She had been drinking 1 liter of HL a day for the last month, and had been an excessive drinker for several years. She is apparently going through litigation regarding some child custody issues. Her 6 and 12 year old are apparently with her mother. Pt hasa dx of ADHD, panic disorder, mild depression has had DBT tx, and has diabetes. She had hasn't taken her HEADING MACHINE OPERATOR in the last month. Pt was readmitted to our ER on 07/30 with the same scenario, CHELLE was .22 a nd she alleged that previous etoh 1/5th of vodka was 2 hours before admission which wouldn't fit with the wd she was reporting. There was suspicion that she had also been abusing benzo's. Pt was demanding med for herDT's. There were no beds avail on 3A, pt was sent to the [facility] who called around for other detox options. Pt was not interested in any other options. She was angry, yelling at staff, and abusive to staff. She then left AMA. I told Edin in order to be considered for LP Pt would need to go through detox, ideally ours, be fully detoxed and demonstrate an attitude conducive to tx. The other option would be to detox somewhere else and then set up an eval appt at [facility]. We could then assess whether or not she neededdetox, was clinically appropriate for LP and demonstrated an attitude conducive to tx. She needs to understand that just because she either went into our detox or was seen by one of our eval counselors she would not be guaranteed a LP bed. Her recent abusive non-compliant behavior on 3A and in the DEC make her a very questionable candidate for LP. Regardless if she goes to 3 A or is seen by a cadd manager, her case needs to be staffed with Elena Hopkins before she would be approved for LP. JENARO Mahajan ERMAKER WELDER * Telephone Encounter - Marybel Marie - 07/27/2017 10:[address] on L+ priority wait list once [facility] placement summary forms received. ERMAKER WELDER * Telephone Encounter - Marybel Marie - 07/27/2017 10:44 AM CST ----- Message from PAIGE Quintana sent at 07/27/2017 10:33 AM BOILERMAKER WELDER ----- Regarding: LP referral Pt requesting [facility] Will fax intake placement summary when available. Women's or mixed group Transfer date TBD Pt will likely discharge to home on wait list as she will need to coordinate childcare. Thank you ERMAKER WELDER documented in this encounter Plan of Treatment Not on file documented as of this encounter Visit Diagnoses Not on filedocumented in this encounter Additional Health Concerns Assessment Noted Time PHQ-9 Depression Total Score: 3 02/20/20 17 7:17 AM CDT documented as of this encounter Care Teams Director Corporate Compliance Relationship Specialty Start Date End Date Oliva Boyce MD [address] [place] [address] [place] [address] PCP - General Internal Medicine 11/26/15 Tracee Omalley APRN FRUIT DRYER [address] [place] [address] [place] [address] PCP - Assigned PCP 01/23/18 08/13/18 Oliva Boyce MD [address] [place] [address] [place] [address] PCP - Assigned PCP 08/14/18 09/27/18 Oliva Boyce MD [address] [facility] [place] [address] Assigned PCP 08/14/18 12/17/18 Oanh Castorena MD [facility] [address] [place] [address] Assigned PCP 12/18/18 07/29/19 Oliva Boyce MD [address] [facility] [place] [address] Assigned PCP 07/30/19 01/20/20 documented as of this encounter
--- OUTSIDE RECORDS SUMMARY | 2023-11-17 09:49 | XMS_ITS | Encounter Summary ---
Author Name Unknown Organization [facility] Address [address] [place] [address] Care Team Providers Care Cement Block Maker Name Role Phone Evin Tavarez MD Primary Care Provider [phone] Oliva Boyce MD Primary Care Provider [phone] Tracee Omalley APRN MANAGER OF LOSS PREVENTION OPERATIONS Unavailable Oliva Boyce MD Unavailable [phone] Oliva Boyce MD Unavailable [phone] Oanh Castorena MD Unavailable + Oliva Boyce MD Unavailable [phone] Encounter Details Date Type Department Care Team (Late st Contact Info) Description 11/07/2015 [facility] [address] [place] [phone] Charo Esqueda Social History Tobacco Use Types Packs/Day Years [...] Assessment Noted Time PHQ-9 Depression Total Score: 0 04/09/20 15 7:19 AM CDT documented as of this encounter Care Teams Cement Block Maker Relationship Specialty Start Date End Date Evin Tavarez MD PCP - General Internal Medicine 11/07/15 11/25/15 Oliva Boyce MD [address] [place] [address] [place] [address] PCP - General Internal Medicine 11/26/15 Tracee Omalley APRN CNP [address] [place] [address] [place] [address] PCP - Assigned PCP 01/23/18 08/13/18 Oliva Boyce MD [address] [place] [address] [place] [address] PCP - Assigned PCP 08/14/18 09/27/18 Oliva Boyce MD [address] [place] [address] [place] [address] Assigned PCP 08/14/18 12/17/18 Oanh Castorena MD [facility] [address] [place] [address] Assigned PCP 12/18/18 07/29/19 Oliva Boyce MD [address] [place] [address] [place] [address] Assigned PCP 07/30/19 01/20/20 documented as of this encounter
--- OUTSIDE RECORDS SUMMARY | 2023-11-17 09:49 | XMS_ITS | Encounter Summary ---
Author Name Unknown Organization [facility] Address [facility] [place] [address] Care Team Providers Care Volunteer Fire Fighter Name Role Phone Oliva Boyce MD Primary Care Provider [phone] Evin Tavarez MD Primary Care Provider [phone] Oliva Boyce MD Primary Care Provider [phone] Tracee Omalley APRN SCIENCE SPECIALIST Unavailable Oliva Boyce MD Unavailable [phone] Oliva Boyce MD Unavailable [phone] Oanh Castorena MD Unavailable + Oliva Boyce MD Unavailable [phone] Encounter Details Date Type Department Care Team (Late st Contact Info) Description 09/24/2014 [facility] Medical Advice [facility] [address] [place] [phone] Scarlett Nunn APRN SCIENCE SPECIALIST [address] [address] [place] [address] Social History Tobacco Use Types Packs/Day Years [...] on filedocumented in this encounter Care Teams Volunteer Fire Fighter Relationship Specialty Start Date End Date Oliva Boyce MD [address] [place] [address] [place] [address] PCP - General Internal Medicine 09/20/13 11/06/15 Evin Tavarez MD [address] [place] [address] [place] [address] PCP - General Internal Medicine 11/07/15 11/25/15 Oliva Boyce MD [address] [place] [address] [place] [address] PCP - General Internal Medicine 11/26/15 Tracee Omalley APRN SCIENCE SPECIALIST [address] [place] [address] [place] [address] PCP - Assigned PCP 01/23/18 08/13/18 Oliva Boyce MD [address] [place] [address] [place] [address] PCP - Assigned PCP 08/14/18 09/27/18 Oliva Boyce MD [address] [place] [address] [place] [address] Assigned PCP 08/14/18 12/17/18 Oanh Castorena MD [facility] [address] [place] [address] Assigned PCP 12/18/18 07/29/19 Oliva Boyce MD [address] [facility] [place] [address] Assigned PCP 07/30/19 01/20/20 documented as of this encounter
--- OUTSIDE RECORDS SUMMARY | 2023-11-17 09:49 | XMS_ITS | Referral Summary ---
Author Name Unknown Organization [facility] Address [address] [place] [address] Care Team Providers Care Tire Curer Name Role Phone Oliva Boyce MD Primary Care Provider [phone] Allergies Active Allergy Reactions Criticality Noted Date Comments Lorazepam Swelling 07/30/2017 Codeine Sulfate Swelling 10/14/2010 Throat swells Haloperidol Other (See Comments) 01/05/2017 Confusion and breathing concerns Penicillins 02/09/2007 Medications Medication Sig Dispensed Refills Start Date End Date Status levonorgestrel (MIRENA) 20 MCG/24HR IUDIndications:Enc ounter for IUD insertion 1 each (20 mcg) by Intrauterine route continuous [id number] 01/08/2017 Active FETZIMA 40 MG 24 hr [...] dependency 07/26/2017 BV (bacterial vaginosis) 09/08/2016 [facility] 11/08/2015 Abnormal electrocardiography 06/15/2014 Alcohol use disorder, [...] 6 months 10/05 Pap Ascus +HPV 58, [place] ALVAREZ I-II 11/05 LEEP ALVAREZ I-II, + margins, in reminders for colp in 4-6 months per ASCCP guidelines 01/01/14 Dx pap NIL. HPV Neg. [place] ALVAREZ I. Plan: [place] in 6 months 08/2014: NIL pap, neg HPV. [place] - no dysplasia. Plan cotest in 1 [...] PF 06/09/2016, 08/01/2014 TDAP Vaccine (Adacel) 06/28/2011 Social History Tobacco Use Types Packs/Day Years [...] Comments Blood Pressure 91/75 08/12/2017 12:46 PM WARD ASSISTANT Pulse 57 08/12/2017 12:46 PM WARD ASSISTANT Temperature 36.8 ??C (98.3 ??F) 07/31/2017 4:25 PM CS T Respiratory Rate 24 07/31/2017 7:03 PM WARD ASSISTANT Oxygen Saturation 100% 07/31/2017 7:03 PM WARD ASSISTANT Inhaled Oxygen Concentration - - Weight 58.9 kg (129 lb 12.8 oz) 018 12:46 PM WARD ASSISTANT Height 170.2 cm (5' 7) 08/12/2017 12:4 6 PM WARD ASSISTANT Body Mass Index 20.33 08/12/2017 12:46 PM WARD ASSISTANT Plan of Treatment Not on file Advance Directives For more information, please contact: [phone] * Full Code (Latest Code Status on File) Date Activated Date Inactivated Comments 07/26/2017 8:34 PM 07/28/2017 2:00 PM Care Teams Tire Curer Relationship Specialty Start Date End Date Oliva Boyce MD [address] [facility] [place] [address] PCP - General Internal Medicine 11/26/15
--- OUTSIDE RECORDS SUMMARY | 2023-11-17 09:49 | XMS_ITS | Encounter Summary ---
Author Name Unknown Organization [facility] Address [address] [place] [address] Care Team Providers Care Marketing Assistant Retail Division Name Role Phone Oliva Boyce MD Primary Care Provider [phone] Evin Tavarez MD Primary Care Provider [phone] Oliva Boyce MD Primary Care Provider [phone] Tracee Omalley APRN APPLICATION SYSTEMS ENGINEER Unavailable Oliva Boyce MD Unavailable [phone] Oliva Boyce MD Unavailable [phone] Oanh Castorena MD Unavailable + Oliva Boyce MD Unavailable [phone] Reason for Visit * Reason Onset Date Comments Medication Request 03/08/2015 something for anxiety Encounter Details Date Type Department Care Team (Late st Contact Info) Description 03/08/[address] [address] [facility] [address] [facility] [place] [phone] Oliva Boyce MD [address] [facility] [place] [address] Medication Request (something for anxiety) Social History Tobacco Use Types Packs/Day Years [...] encounter Miscellaneous Notes * Telephone Encounter - Eunice Weiss - 03/08/2015 10:28 AM CDT Has had alprazolam as late as 2012. Will ask pt to come to clinic today. Eunice Weiss RN documented in this encounter Plan of Treatment Not on file documented as of this encounter Visit Diagnoses Not on filedocumented in this encounter Care Teams Marketing Assistant Retail Division Relationship Specialty Start Date End Date Oliva Boyce MD [address] [place] [address] [place] [address] PCP - General Internal Medicine 09/20/13 11/06/15 Evin Tavarez MD [address] [place] [address] [place] [address] PCP - General Internal Medicine 11/07/15 11/25/15 Oliva Boyce MD [address] [place] [address] [place] [address] PCP - General Internal Medicine 11/26/15 Tracee Omalley APRN CNP [address] [place] [address] [place] [address] PCP - Assigned PCP 01/23/18 08/13/18 Oliva Boyce MD [address] [place] [address] [place] [address] PCP - Assigned PCP 08/14/18 09/27/18 Oliva Boyce MD [address] [facility] [place] [address] Assigned PCP 08/14/18 12/17/18 Oanh Castorena MD [facility] [address] [place] [address] Assigned PCP 12/18/18 07/29/19 Oliva Boyce MD [address] [facility] [place] [address] Assigned PCP 07/30/19 01/20/20 documented as of this encounter
--- OUTSIDE RECORDS SUMMARY | 2023-11-17 09:49 | XMS_ITS | Encounter Summary ---
Author Name Unknown Organization [place] Address [address] [place] [address] Care Team Providers Care Jewelry Setter Name Role Phone Oliva Boyce MD Primary Care Provider [phone] Evin Tavarez MD Primary Care Provider [phone] Oliva Boyce MD Primary Care Provider [phone] Tracee Omalley APRN MARKET RESEARCHER Unavailable Oliva Boyce MD Unavailable [phone] Oliva Boyce MD Unavailable [phone] Oanh Castorena MD Unavailable + Oliva Boyce MD Unavailable [phone] Encounter Details Date Type Department Care Team (Late st Contact Info) Description 09/30/2015 [facility] Medical Advice [facility] [address] [facility] [place] [address] Chani Mayfield MA Social History Tobacco Use Types Packs/Day Years [...] documented as of this encounter Care Teams Jewelry Setter Relationship Specialty Start Date End Date Oliva Boyce MD [address] [place] [address] [place] [address] PCP - General Internal Medicine 09/20/13 11/06/15 Evin Tavarez MD [address] [place] [address] [place] [address] PCP - General Internal Medicine 11/07/15 11/25/15 Oliva Boyce MD [address] [place] [address] [place] [address] PCP - General Internal Medicine 11/26/15 Tracee Omalley APRN MARKET RESEARCHER [address] [place] [address] [place] [address] PCP - Assigned PCP 01/23/18 08/13/18 Oliva Boyce MD [address] [place] [address] [place] [address] PCP - Assigned PCP 08/14/18 09/27/18 Oliva Boyce MD [address] [place] [address] [place] [address] Assigned PCP 08/14/18 12/17/18 Oanh Castorena MD PRIMARY ENT [address] [place] [address] Assigned PCP 12/18/18 07/29/19 Oliva Boyce MD [address] [place] [address] Assigned PCP 07/30/19 01/20/20 documented as of this encounter
--- OUTSIDE RECORDS SUMMARY | 2023-11-17 09:49 | XMS_ITS | Encounter Summary ---
Author Name Unknown Organization [place] Address [address] [place] [address] Care Team Providers Care Bone Char Kiln Tender Name Role Phone Oliva Boyce MD Primary Care Provider [phone] Evin Tavarez MD Primary Care Provider [phone] Oliva Boyce MD Primary Care Provider [phone] Tracee Omalley APRN PRESCHOOL PARAPROFESSIONAL Unavailable Oliva Boyce MD Unavailable [phone] Oliva Boyce MD Unavailable [phone] Oanh Castorena MD Unavailable + Oliva Boyce MD Unavailable [phone] Encounter Details Date Type Department Care Team (Late st Contact Info) Description 09/04/2015 [facility] Medical Advice [facility] [address] [facility] [place] [address] Magdalena Levi, PRINCIPAL TECHNOLOGIST Social History Tobacco Use Types Packs/Day Years [...] documented as of this encounter Care Teams Bone Char Kiln Tender Relationship Specialty Start Date End Date Oliva Boyce MD [address] [place] [address] [place] [address] PCP - General Internal Medicine 09/20/13 11/06/15 Evin Tavarez MD [address] [place] [address] [place] [address] PCP - General Internal Medicine 11/07/15 11/25/15 Oliva Boyce MD [address] [place] [address] [place] [address] PCP - General Internal Medicine 11/26/15 Tracee Omalley APRN PRESCHOOL PARAPROFESSIONAL [address] [place] [address] [place] [address] PCP - Assigned PCP 01/23/18 08/13/18 Oliva Boyce MD [address] [place] [address] [place] [address] PCP - Assigned PCP 08/14/18 09/27/18 Oliva Boyce MD [address] [place] [address] [place] [address] Assigned PCP 08/14/18 12/17/18 Oanh Castorena MD PRIMARY ENT [address] [place] [address] Assigned PCP 12/18/18 07/29/19 Oliva Boyce MD [address] [facility] [address] [place], [place] [address] Assigned PCP 07/30/19 01/20/20 documented as of this encounter
--- OUTSIDE RECORDS SUMMARY | 2023-11-17 09:49 | XMS_ITS | Encounter Summary ---
Author Name Unknown Organization [facility] Address [facility] [place] [address] Care Team Providers Care Therapy Aide Name Role Phone Oliva Boyce MD Primary Care Provider [phone] Evin Tavarez MD Primary Care Provider [phone] Oliva Boyce MD Primary Care Provider [phone] Tracee Omalley APRN COLLARETTE SEPARATOR Unavailable Oliva Boyce MD Unavailable [phone] Oliva Boyce MD Unavailable [phone] Oanh Castorena MD Unavailable + Oliva Boyce MD Unavailable [phone] Reason for Visit * Reason Onset Date Comments Forms 11/29/2014 medical records Encounter Details Date Type Department Care Team (Late st Contact Info) Description 11/29/2014 My[facility] Medical Advice [facility] [address] [facility] [place] [address] Oliva Boyce MD [address] [facility] [place] [address] Forms (medical records) Social History Tobacco Use Types Packs/Day Years [...] on filedocumented in this encounter Care Teams Therapy Aide Relationship Specialty Start Date End Date Oliva Boyce MD [address] [place] [address] [place] [address] PCP - General Internal Medicine 09/20/13 11/06/15 Evin Tavarez MD [address] [place] [address] [place] [address] PCP - General Internal Medicine 11/07/15 11/25/15 Oliva Boyce MD [address] [place] [address] [place] [address] PCP - General Internal Medicine 11/26/15 Tracee Omalley APRN CNP [address] [place] [address] [place] [address] PCP - Assigned PCP 01/23/18 08/13/18 Oliva Boyce MD [address] [place] [address] [place] [address] PCP - Assigned PCP 08/14/18 09/27/18 Oliva Boyce MD [address] [place] [address] [place] [address] Assigned PCP 08/14/18 12/17/18 Oanh Castorena MD PRIMARY ENT [address] [place] [address] Assigned PCP 12/18/18 07/29/19 Oliva Boyce MD [address] [facility] [place] [address] Assigned PCP 07/30/19 01/20/20 documented as of this encounter
--- OUTSIDE RECORDS SUMMARY | 2023-11-17 09:50 | XMS_ITS | Encounter Summary ---
Author Name Unknown Organization [place] Address [facility] [place] [address] Care Team Providers Care Road Equipment Operator Name Role Phone Joel Landry MD Primary Care Provider [phone] Oliva Boyce MD Primary Care Provider [phone] Evin Tavarez MD Primary Care Provider [phone] Oliva Boyce MD Primary Care Provider [phone] Tracee Omalley APRN, CNP Unavailable Oliva Boyce MD Unavailable [phone] Oliva Boyce MD Unavailable [phone] Oanh Castorena MD Unavailable + Oliva Boyce MD Unavailable [phone] Encounter Details Date Type Department Care Team (Late st Contact Info) Description 10/03/2012 MyC Medical Advice [facility] [address] [place] [address] Joel Landry MD [address] [place] [address] 100 [address] 160 [place], [place] [id number] Social History Tobacco Use Types Packs/Day Years Used Date Smoking Tobacco: Former Cigarettes 0.5 10 Smokeless Tobacco: Never Alcohol [...] on filedocumented in this encounter Care Teams Road Equipment Operator Relationship Specialty Start Date End Date Joel Landry MD [address] [place] [address] 100 [address] 160 [place] [address] PCP - General printing roller polisher 05/02/11 09/19/13 Oliva Boyce MD [address] [place] [address] [place] [address] PCP - General Internal Medicine 09/20/13 11/06/15 Evin Tavarez MD [address] [place] [address] [place] [address] PCP - General Internal Medicine 11/07/15 11/25/15 Oliva Boyce MD [address] [place] [address] [place] [address] PCP - General Internal Medicine 11/26/15 Tracee Omalley APRN REGULATORY COMPLIANCE SPECIALIST [address] [place] [address] [place] [address] PCP - Assigned PCP 01/23/18 08/13/18 Oliva Boyce MD [address] [place] [address] [place] [address] PCP - Assigned PCP 08/14/18 09/27/18 Oliva Boyce MD [address] [place] [address] [place] [address] Assigned PCP 08/14/18 12/17/18 Oanh Castorena MD PRIMARY ENT [address] [facility] [address] [place] [address] Assigned PCP 12/18/18 07/29/19 Oliva Boyce MD [address] [facility] [place] [address] Assigned PCP 07/30/19 01/20/20 documented as of this encounter
--- OUTSIDE RECORDS SUMMARY | 2023-11-17 09:50 | XMS_ITS | Encounter Summary ---
Author Name Unknown Organization [facility] Address [address] [place] [address] Care Team Providers Care Computer Support Specialist Instructor Name Role Phone Joel Landry MD Primary Care Provider [phone] Oliva Boyce MD Primary Care Provider [phone] Evin Tavarez MD Primary Care Provider [phone] Oliva Boyce MD Primary Care Provider [phone] Tracee Omalley APRN, CNP Unavailable Oliva Boyce MD Unavailable [phone] Oliva Boyce MD Unavailable [phone] Oanh Castorena MD Unavailable + Oliva Boyce MD Unavailable [phone] Encounter Details Date Type Department Care Team (Late st Contact Info) Description 09/04/2012 MyC Medical Advice [facility] [address] [place] [address] Joel Landry MD [address] [place] [address] 100 [address] 160 [place] [address] Social History Tobacco Use Types Packs/Day Years [...] on filedocumented in this encounter Care Teams Computer Support Specialist Instructor Relationship Specialty Start Date End Date Joel Landry MD [address] [place] [address] 100 [address] 160 [place] [address] PCP - General supervisor electronics inspection 05/02/11 09/19/13 Oliva Boyce MD [address] [place] [address] [place] [address] PCP - General Internal Medicine 09/20/13 11/06/15 Evin Tavarez MD [address] [place] [address] [place] [address] PCP - General Internal Medicine 11/07/15 11/25/15 Oliva Boyce MD [address] [place] [address] [place] [address] PCP - General Internal Medicine 11/26/15 Tracee Omalley APRN GLASS CLEANING MACHINE TENDER [address] [place] [address] [place] [address] PCP - Assigned PCP 01/23/18 08/13/18 Oliva Boyce MD [address] [place] [address] [place] [address] PCP - Assigned PCP 08/14/18 09/27/18 Oliva Boyce MD [address] [place] [address] [place] [address] Assigned PCP 08/14/18 12/17/18 Oanh Castorena MD PRIMARY ENT [address] [facility] [address] [place] [address] Assigned PCP 12/18/18 07/29/19 Oliva Boyce MD [address] [facility] [place] [address] Assigned PCP 07/30/19 01/20/20 documented as of this encounter
--- OUTSIDE RECORDS SUMMARY | 2023-11-17 09:50 | XMS_ITS | Encounter Summary ---
Author Name Unknown Organization [place] Address [address] [place] [address] Care Team Providers Care Survey Operations Director Name Role Phone Oliva Boyce MD Primary Care Provider [phone] Evin Tavarez MD Primary Care Provider [phone] Oliva Boyce MD Primary Care Provider [phone] Tracee Omalley APRN DIRECTOR NICU Unavailable Oliva Boyce MD Unavailable [phone] Oliva Boyce MD Unavailable [phone] Oanh Castorena MD Unavailable + Oliva Boyce MD Unavailable [phone] Encounter Details Date Type Department Care Team (Late st Contact Info) Description 06/19/2014 [facility] Medical Advice [facility] [address] [place] [address] Marilia Kent, RN Social History Tobacco Use Types Packs/Day Years [...] on filedocumented in this encounter Care Teams Survey Operations Director Relationship Specialty Start Date End Date Oliva Boyce MD [address] [place] [address] [place] [address] PCP - General Internal Medicine 09/20/13 11/06/15 Evin Tavarez MD [address] [place] [address] [place] [address] PCP - General Internal Medicine 11/07/15 11/25/15 Oliva Boyce MD [address] [place] [address] [place] [address] PCP - General Internal Medicine 11/26/15 Tracee Omalley APRN CNP [address] [place] [address] [place] [address] PCP - Assigned PCP 01/23/18 08/13/18 Oliva Boyce MD [address] [place] [address] [place] [address] PCP - Assigned PCP 08/14/18 09/27/18 Oliva Boyce MD [address] [place] [address] [place] [address] Assigned PCP 08/14/18 12/17/18 Oanh Castorena MD PRIMARY ENT [address] [place] [address] Assigned PCP 12/18/18 07/29/19 Oliva Boyce MD [address] [place] [address] Assigned PCP 07/30/19 01/20/20 documented as of this encounter
--- NOTE | 2023-11-17 10:00 | CT_ITS ---
Patient: MARLEN RAINES Facility:?[facility] Patient ID:?[id number] Site Patient ID:?[id number]. Site :?1984 Study:?CT-Chest w/o-11/17/2023 11:00:15 AM Ordering Physician:Abhi Final Report: Indication: chronic cough,h/o smoking and current smoker, TB exposure x 2 years ago Technique: Noncontrast CT chest Please note that all CT scans at this facility use dose modulation, iterative reconstruction, and/or weight-based dosing when appropriate to reduce radiation dose to as low as reasonably achievable. Comparison: Chest x-ray 08/16/2023 Findings: The visualized thyroid gland is unremarkable. Incidental pericardial recess and mild residual thymic tissue in the anterior mediastinum. The upper abdomen is unremarkable. No hiatal hernia. No adenopathy. Lungs are clear. No infiltrate or edema. No effusion or pneumothorax. No pulmonary fibrosis. No suspicious pulmonary nodule. Lung volumes are slightly increased. Impression: No airspace disease or pulmonary fibrosis. Mild obstructive pulmonary physiology. Please note that all CT scans at this facility use dose modulation, iterative reconstruction, and/or weight-based dosing when appropriate to reduce radiation dose to as low as reasonably achievable. Dictated by Hector Gillesipe MD @ 11/18/2023 8:59:45 AM Signed by:?Hector Gillespie MD @11/18/2023 8:59:45 AM (Electronic Signature)
== END 2023-11-17 09:42 | disposition home or self-care (01) ==
LOC: CT 09:42
PROVIDERS: PCP Family Medicine; Visit Provider Family Medicine
DX: R05.3 Chronic cough (principal); F17.200 Nicotine dependence, unspecified, uncomplicated
CPT/HCPCS: 71250

== ENCOUNTER 2024-05-31 09:35 | Outpatient (CLI) | payer MEDICAID, SELFPAY ==
--- OUTSIDE RECORDS SUMMARY | 2024-05-31 09:38 | XMS_ITS | Encounter Summary ---
Author Organization [facility] Address [address] [place] [address] Care Team Providers Care Rn Obgyn Name Role Phone Oliva Boyce MD Primary Care Provider [phone] Evin Tavarez MD Primary Care Provider [phone] Oliva Boyce MD Primary Care Provider [phone] Tracee Omalley APRN CONVEYANCER Unavailable Oliva Boyce MD Unavailable [phone] Oliva Boyce MD Unavailable [phone] Oanh Castorena MD Unavailable + Oliva Boyce MD Unavailable [phone] Arthur Alejo MD Primary Care Provider [phone] Encounter Details Date Type Department Care Team (Late st Contact Info) Description 06/19/2014 MyC Medical Advice [facility] [address] [place] [address] Marilia Kent, RN Social History Tobacco Use Types Packs/Day Years Used Date Smoking Tobacco: Some Days Cigarettes 0.5 10 Smokeless Tobacco: Never Alcohol Use Standard Drinks/Week Comments No 0 (1 standard drink = 0.6 oz pur e alcohol) Comments No Sex and Gender Information Value Date Recorded Sex Assigned at Not on file Legal Sex Female 3:36 AM PATIENT FINANCIAL SERVICES MANAGER Gender Identity Not on file Sexual Orientation Not on file 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 Not on file Not on file Not on file documented as of this encounter Plan of Treatment Not on file documented as of this encounter Visit Diagnoses Not on filedocumented in this encounter Additional Health Concerns Infection Onset Date Last Indicated Resolved Time Rule Out COVID-19 03/28/2024 03/28/2024 03/28/2024 5:46 PM CDT documented as of this encounter Care Teams Rn Obgyn Relationship Specialty Start Date End Date Oliva Boyce MD [address] [place] [address] [place] [address] PCP - General Internal Medicine 09/20/13 11/06/15 Evin Tavarez MD [address] [place] [address] [place] [address] PCP - General Internal Medicine 11/07/15 11/25/15 Oliva Boyce MD [address] [place] [address] [place] [address] PCP - General Internal Medicine 11/26/15 03/27/24 Tracee Omalley APRN CONVEYANCER [address] [place] [address] [place] [address] PCP - Assigned PCP 01/23/18 08/13/18 Oliva Boyce MD [address] [place] [address] [place] [address] PCP - Assigned PCP 08/14/18 09/27/18 Arthur Alejo MD [facility] [address], [place] [address] PCP - General Family Medicine 03/28/24 Oliva Boyce MD [address] [facility] [place] [address] Assigned PCP 08/14/18 12/17/18 Oanh Castorena MD PRIMARY ENT [address] [place] [address] Assigned PCP 12/18/18 07/29/19 Oliva Boyce MD [address] [facility] [place] [address] Assigned PCP 07/30/19 01/20/20 documented as of this encounter
--- OUTSIDE RECORDS SUMMARY | 2024-05-31 09:38 | XMS_ITS | Encounter Summary ---
Author Organization [facility] Address [address] [place] [address] Care Team Providers Care Security Strategist Name Role Phone Evin Tavarez MD Primary Care Provider [phone] Oliva Boyce MD Primary Care Provider [phone] Tracee Omalley APRN [facility] Unavailable Oliva Boyce MD Unavailable [phone] Oliva Boyce MD Unavailable [phone] Oanh Castorena MD Unavailable + Oliva Boyce MD Unavailable [phone] Arthur Alejo MD Primary Care Provider [phone] Encounter Details Date Type Department Care Team (Late st Contact Info) Description 11/07/2015 [facility] Medical Advice [address] [place] [address] Charo Esqueda Social History Tobacco Use Types Packs/Day Years Used Date Smoking Tobacco: Some Days Cigarettes 0.5 10 Smokeless Tobacco: Never Alcohol Use Standard Drinks/Week Comments No 0 (1 standard drink = 0.6 oz pur e alcohol) Comments No Sex and Gender Information Value Date Recorded Sex Assigned at Not on file Legal Sex Female 3:36 AM GRADUATE TEACHER EDUCATION Gender Identity Not on file Sexual Orientation Not on file 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 Not on file Not on file documented as of this encounter Plan of Treatment Not on file documented as of this encounter Visit Diagnoses Not on filedocumented in this encounter Additional Health Concerns Infection Onset Date Last Indicated Resolved Time Rule Out COVID-19 03/28/2024 03/28/2024 03/28/2024 5:46 PM CDT Assessment Noted Time PHQ-9 Depression Total Score: 0 04/09/20 15 7:19 AM CDT documented as of this encounter Care Teams Security Strategist Relationship Specialty Start Date End Date Evin Tavarez MD PCP - General Internal Medicine 11/07/15 11/25/15 Oliva Boyce MD [address] [place] [address] [place] [address] PCP - General Internal Medicine 11/26/15 03/27/24 Tracee Omalley APRN PECAN HULLER [address] [place] [address] [place] [address] PCP - Assigned PCP 01/23/18 08/13/18 Oliva Boyce MD [address] [place] [address] [place] [address] PCP - Assigned PCP 08/14/18 09/27/18 Arthur Alejo MD [facility] [address], [place] [address] PCP - General Family Medicine 03/28/24 Oliva Boyce MD [address] [place] [address] [place] [address] Assigned PCP 08/14/18 12/17/18 Oanh Castorena MD PRIMARY ENT [address] [place] [address] Assigned PCP 12/18/18 07/29/19 Oliva Boyce MD [address] [facility] [place] [address] Assigned PCP 07/30/19 01/20/20 documented as of this encounter
--- OUTSIDE RECORDS SUMMARY | 2024-05-31 09:38 | XMS_ITS | Encounter Summary ---
Author Organization [place] Address [address] [place] [address] Care Team Providers Care College Professor Name Role Phone Oliva Boyce MD Primary Care Provider [phone] Evin Tavarez MD Primary Care Provider [phone] Oliva Boyce MD Primary Care Provider [phone] Tracee Omalley APRN RECEIVING SUPERVISOR Unavailable Oliva Boyce MD Unavailable [phone] Oliva Boyce MD Unavailable [phone] Oanh Castorena MD Unavailable + Oliva Boyce MD Unavailable [phone] Arthur Alejo MD Primary Care Provider [phone] Encounter Details Date Type Department Care Team (Late st Contact Info) Description 09/24/2014 MyC Medical Advice [facility] [address] [place] [address] Scarlett Nunn, MARKER ASSEMBLER RECEIVING SUPERVISOR [address] [address] [place] [address] Social History Tobacco Use Types Packs/Day Years Used Date Smoking Tobacco: Some Days Cigarettes 0.5 10 Smokeless Tobacco: Never Alcohol Use Standard Drinks/Week Comments No 0 (1 standard drink = 0.6 oz pur e alcohol) Comments No Sex and Gender Information Value Date Recorded Sex Assigned at Not on file Legal Sex Female 3:36 AM SERVICENOW ADMINISTRATOR Gender Identity Not on file Sexual Orientation Not on file 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 Not 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 Not on file Not on file documented as of this encounter Plan of Treatment Not on file documented as of this encounter Visit Diagnoses Not on filedocumented in this encounter Additional Health Concerns Infection Onset Date Last Indicated Resolved Time Rule Out COVID-19 03/28/2024 03/28/2024 03/28/2024 5:46 PM CDT documented as of this encounter Care Teams College Professor Relationship Specialty Start Date End Date Oliva Boyce MD [address] [place] [address] [place] [address] PCP - General Internal Medicine 09/20/13 11/06/15 Evin Tavarez MD [address] [place] [address] [place] [address] PCP - General Internal Medicine 11/07/15 11/25/15 Oliva Boyce MD [address] [place] [address] [place] [address] PCP - General Internal Medicine 11/26/15 03/27/24 Tracee Omalley APRN RECEIVING SUPERVISOR [address] [place] [address] [place] [address] PCP - Assigned PCP 01/23/18 08/13/18 Oliva Boyce MD [address] [place] [address] [place] [address] PCP - Assigned PCP 08/14/18 09/27/18 Arthur Alejo MD [address] [place] [address] PCP - General Family Medicine 03/28/24 Oliva Boyce MD [address] [facility] [place] [address] Assigned PCP 08/14/18 12/17/18 Oanh Castorena MD [facility] [address] [facility] [address] [place] [address] Assigned PCP 12/18/18 07/29/19 Oliva Boyce MD [address] [facility] [place] [address] Assigned PCP 07/30/19 01/20/20 documented as of this encounter
--- OUTSIDE RECORDS SUMMARY | 2024-05-31 09:38 | XMS_ITS | Encounter Summary ---
Author Organization [place] Address [address] [place] [address] Care Team Providers Care Marketing Development Specialist Name Role Phone Arthur Alejo MD Primary Care Provider Encounter Details Date Type Department Care Team (Latest Contact Info) Description 03/28/2024 Travel Social History Tobacco Use Types Packs/Day Years Used Date Smoking Tobacco: Some Days Cigarettes 1 15 Smokeless Tobacco: Former Alcohol Use Standard Drinks/Week Comments Yes 0 (1 standard drink = 0.6 oz pure alcohol) 1 Liter of Vodka for past 5 weeks PHQ-2 Answer Date Recorded PHQ-2 Score 2 08/02/2018 Comments No Sex and Gender Information Value Date Recorded Sex Assigned at Not on file Legal Sex Female 3:36 AM SWITCH OPERATOR Gender Identity Not on file Sexual Orientation Not on file 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 Not on file Not on file documented as of this encounter Plan of Treatment Not on file documented as of this encounter Visit Diagnoses Not on filedocumented in this encounter Additional Health Concerns Infection Onset Date Last Indicated Resolved Time Rule Out COVID-19 03/28/2024 03/28/2024 03/28/2024 5:46 PM CDT Assessment Noted Time PHQ-9 Depression Total Score: 7 08/12/19 18 2:02 PM SWITCH OPERATOR documented as of this encounter Care Teams Marketing Development Specialist Relationship Specialty Start Date End Date Arthur Alejo MD [facility] [address], [place] [address] PCP - General Family Medicine 03/28/24 documented as of this encounter
--- OUTSIDE RECORDS SUMMARY | 2024-05-31 09:38 | XMS_ITS | Encounter Summary ---
Author Organization [facility] Address [address] [place] [address] Care Team Providers Care Conference And Event Organiser Name Role Phone Oliva Boyce MD Primary Care Provider [phone] Tracee Omalley APRN, CNP Unavailable Oliva Boyce MD Unavailable [phone] Oliva Boyce MD Unavailable [phone] Oanh Castorena MD Unavailable + Oliva Boyce MD Unavailable [phone] Arthur Alejo MD Primary Care Provider [phone] Reason for Visit * Reason Onset Date Comments [facility] 07/27/2017 pt seeking lodgi ng Encounter Details Date Type Department Care Team (Late st Contact Info) Description 07/27/2017 Telephone [facility] Behavioral Health Intake [address] [place] [address] Generic, Behavioral Intake, [facility] (pt seeking lodging) Social History Tobacco Use Types Packs/Day Years Used Date Smoking Tobacco: Some Days Cigarettes 0.5 10 Smokeless Tobacco: Former Alcohol Use Standard Drinks/Week Comments Yes 0 (1 standard drink = 0.6 oz pur e alcohol) Comments No Sex and Gender Information Value Date Recorded Sex Assigned at Not on file Legal Sex Female 3:36 AM HERBARIUM WORKER Gender Identity Not on file Sexual Orientation Not on file 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 ARIUM WORKER * Telephone Encounter - Radha Leija LADC - 08/17/2017 5:09 PM CST Alana called and left voicemail stating that she had difficulty emailing me the KIM. I called her back. A child answered and said she was sleeping. I said I would call back later. ARIUM WORKER * Telephone Encounter - Radha Leija LADC - 08/16/2017 4:25 PM CST Patient called and left voicemail. I called back and left voicemail asking her to call to discuss recommendations. She called back and I explained recommendation for co-occurring residential treatment. She requested [facility]. I securely emailed her KIM to sign and return. ARIUM WORKER * Telephone Encounter - Park Morirssey - 08/09/2017 4:12 PM CST 08-09-17 Client called to reschedule today's eval for 08-12-17 @ 1245. fb ARIUM WORKER * Telephone Encounter - Gato Alston - [...] to be sober at time of eval. ARIUM WORKER * Telephone Encounter - Felipe Hein, [facility] - 08/05/2017 10:03 AM HERBARIUM WORKER 08/05/2017 I received a tel call from Edin in intake today to review Alana for LP. Per the EMR, Maru was admitted to 3A 07/26/17 and left AMA as she was [...] has diabetes. She had hasn't taken her HAND SURGEON in the last month. Pt was readmitted [...] on 3A, pt was sent to the [facility] who called around for other detox options. [...] then set up an eval appt at [facility]. We could then assess whether or [...] 3 A or is seen by a FV access analyst, her case needs to be staffed with Elena Hopkins before she would be approved for LP. Felipe BRISENO [facility] ARIUM WORKER * Telephone Encounter - Marybel Marie - 07/27/2017 10:[address] on L+ priority wait list once [facility] placement summary forms received. ARIUM WORKER * Telephone Encounter - Marybel Marie - 07/27/2017 10:44 AM CST ----- Message from PAIGE Quintana sent at 07/27/2017 10:33 AM HERBARIUM WORKER ----- Regarding: LP referral Pt requesting [facility] [place] Will fax intake placement summary when available. Women's or mixed group Transfer date TBD Pt will likely discharge to home on wait list as she will need to coordinate childcare. Thank you ARIUM WORKER documented in this encounter Plan of Treatment Not on file documented as of this encounter Visit Diagnoses Not on filedocumented in this encounter Additional Health Concerns Infection Onset Date Last Indicated Resolved Time Rule Out COVID-19 03/28/2024 03/28/2024 03/28/2024 5:46 PM CDT Assessment Noted Time PHQ-9 Depression Total Score: 3 02/20/20 17 7:17 AM CDT documented as of this encounter Care Teams Conference And Event Organiser Relationship Specialty Start Date End Date Oliva Boyce MD [address] [place] [address] [place] [address] PCP - General Internal Medicine 11/26/15 03/27/24 Ursula-Tracee Robbins APRN LAND LEASE INFORMATION CLERK [address] [place] [address] [place] [address] PCP - Assigned PCP 01/23/18 08/13/18 [place] [address] [place] [address] [place] [address] PCP - Assigned PCP 08/14/18 09/27/18 Arthur Alejo MD [facility] [address], [place] [address] PCP - General Family Medicine 03/28/24 [place] [address] [place] [address] [place] [address] Assigned PCP 08/14/18 12/17/18 Oanh Castorena MD PRIMARY ENT [address] [place] [address] Assigned PCP 12/18/18 07/29/19 Oliva Boyce MD [address] [facility] [place] [address] Assigned PCP 07/30/19 01/20/20 documented as of this encounter
--- OUTSIDE RECORDS SUMMARY | 2024-05-31 09:38 | XMS_ITS | Encounter Summary ---
Author Organization [facility] Address [address] [place] [address] Care Team Providers Care Coach Operator Name Role Phone Oliva Boyce MD Primary Care Provider [phone] Evin Tavarez MD Primary Care Provider [phone] Oliva Boyce MD Primary Care Provider [phone] Tracee Omalley APRN VOCATIONAL DIRECTOR Unavailable Oliva Boyce MD Unavailable [phone] Oliva Boyce MD Unavailable [phone] Oanh Castorena MD Unavailable + Oliva Boyce MD Unavailable [phone] Arthur Alejo MD Primary Care Provider [phone] Encounter Details Date Type Department Care Team (Late st Contact Info) Description 09/30/2015 My[facility] Medical Advice [address] [place] [address] Chani Mayfield MA Social History Tobacco Use Types Packs/Day Years Used Date Smoking Tobacco: Some Days Cigarettes 0.5 10 Smokeless Tobacco: Never Alcohol Use Standard Drinks/Week Comments No 0 (1 standard drink = 0.6 oz pur e alcohol) Comments No Sex and Gender Information Value Date Recorded Sex Assigned at Not on file Legal Sex Female 3:36 AM CASING WORKER Gender Identity Not on file Sexual Orientation Not on file 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 Not on [...] documented as of this encounter Care Teams Coach Operator Relationship Specialty Start Date End Date Oliva Boyce MD [address] [place] [address] [place] [id number] PCP - General Internal Medicine 09/20/13 11/06/15 Evin Tavarez MD [address] [place] [address] [place] [address] PCP - General Internal Medicine 11/07/15 11/25/15 Oliva Boyce MD [address] [place] [address] [place] [address] PCP - General Internal Medicine 11/26/15 03/27/24 Tracee Omalley APRN VOCATIONAL DIRECTOR [address] [place] [address] [place] [address] PCP - Assigned PCP 01/23/18 08/13/18 Oliva Boyce MD [address] [place] [address] [place] [address] PCP - Assigned PCP 08/14/18 09/27/18 Arthur Alejo MD [place] [id number] [address] PCP - General Family Medicine 03/28/24 Oliva Boyce MD [address] [facility] [place] [address] Assigned PCP 08/14/18 12/17/18 Oanh Castorena MD PRIMARY ENT [address] [place] [address] Assigned PCP 12/18/18 07/29/19 Oliva Boyce MD [address] [facility] [place] [id number] Assigned PCP 07/30/19 01/20/20 documented as of this encounter
--- OUTSIDE RECORDS SUMMARY | 2024-05-31 09:38 | XMS_ITS | Encounter Summary ---
Author Organization [facility] Address [address] [place] [address] Care Team Providers Care Federal District Law Clerk Name Role Phone Oliva Boyce MD Primary Care Provider [phone] Evin Tavarez MD Primary Care Provider [phone] Oliva Boyce MD Primary Care Provider [phone] Tracee Omalley APRN PRIMARY SUBSTANCE ABUSE COUNSELOR Unavailable Oliva Boyce MD Unavailable [phone] Oliva Boyce MD Unavailable [phone] Oanh Castorena MD Unavailable + Oliva Boyce MD Unavailable [phone] Arthur Alejo MD Primary Care Provider [phone] Encounter Details Date Type Department Care Team (Late st Contact Info) Description 09/28/2014 MyC Medical Advice [facility] [address] [place] [id number] Scarlett Nunn, DINKEY OPERATOR SLAG PRIMARY SUBSTANCE ABUSE COUNSELOR [address] [place] [address] Social History Tobacco Use Types Packs/Day Years Used Date Smoking Tobacco: Some Days Cigarettes 0.5 10 Smokeless Tobacco: Never Alcohol Use Standard Drinks/Week Comments No 0 (1 standard drink = 0.6 oz pur e alcohol) Comments No Sex and Gender Information Value Date Recorded Sex Assigned at Not on file Legal Sex Female 3:36 AM MANAGER REIMBURSEMENT Gender Identity Not on file Sexual Orientation Not on file 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 Not on file Not on file documented as of this encounter Plan of Treatment Not on file documented as of this encounter Visit Diagnoses Not on filedocumented in this encounter Additional Health Concerns Infection Onset Date Last Indicated Resolved Time Rule Out COVID-19 03/28/2024 03/28/2024 03/28/2024 5:46 PM CDT documented as of this encounter Care Teams [employer] [place] Law Clerk Relationship Specialty Start Date End Date Oliva Boyce MD [address] [place] [address] [place] [address] PCP - General Internal Medicine 09/20/13 11/06/15 Evin Tavarez MD [address] [place] [address] [place] [address] PCP - General Internal Medicine 11/07/15 11/25/15 Oliva Boyce MD [address] [place] [address] [place] [address] PCP - General Internal Medicine 11/26/15 03/27/24 Tracee Omalley APRN PRIMARY SUBSTANCE ABUSE COUNSELOR [address] [place] [address] [place] [address] PCP - Assigned PCP 01/23/18 08/13/18 Oliva Boyce MD [address] [place] [address] [place] [address] PCP - Assigned PCP 08/14/18 09/27/18 Arthur Alejo MD [address] [place] [address] PCP - General Family Medicine 03/28/24 Oliva Boyce MD [address] [facility] [place] [address] Assigned PCP 08/14/18 12/17/18 Oanh Castorena MD [facility] [address] [facility] [address] [place] [address] Assigned PCP 12/18/18 07/29/19 Oliva Boyce MD [address] [facility] [place] [address] Assigned PCP 07/30/19 01/20/20 documented as of this encounter
--- OUTSIDE RECORDS SUMMARY | 2024-05-31 09:38 | XMS_ITS | Clinical Summary ---
Author Organization [facility] Address [address] [place] [address] Care Team Providers Care Centrifugal Extractor Operator Name Role Phone Arthur Alejo MD Primary Care Provider Allergies Active Allergy Reactions Criticality Noted Date Comments Lorazepam Swelling 07/30/2017 Codeine Sulfate Swelling 10/14/2010 Throat swells Haloperidol Other (See Comments) 01/05/2017 Confusion and breathing concerns Penicillins 02/09/2007 Medications * This document contains information received from the source organization and may not represent a complete record from that organization. levonorgestrel (MIRENA) 20 MCG/24HR IUDIndications:E ncounter for IUD insertion 1 each (20 mcg) by Intrauterine route continuous ZDQ=[id number] 7 Active FETZIMA 40 MG 24 hr capsuleIndicatio ns:Mood disorder (H) Take 2 capsules (80 mg) by mouth daily 60 capsule 1 7 Active lamoTRIgine (LAMICTAL) 150 MG tablet Take 75 mg by mouth daily 7 Active potassium chloride SA (K-DUR/KLOR-CON M) 20 MEQ CR tabletIndication s:Hypokalemia TAKE 1 TABLET(20 MEQ) BY MOUTH TWICE DAILY 60 tablet 7 Active Additional Information Patient not taking.Reported on 03/28/2024 LORAZEPAM PO Active albuterol (PROAIR HFA/PROVENTIL HFA/VENTOLIN HFA) 108 (90 Base) MCG/ACT inhalerIndicatio ns:Viral illness,COPD exacerbation (H) Inhale 2 puffs into the lungs every 6 hours as needed for shortness of breath, wheezing or cough. 18 g 4 025 Active Active Problems Problem Noted Date Diagnosed Date Alcohol withdrawal 07/27/2017 Anxiety 07/27/2017 Chemical dependency 07/26/2017 BV (bacterial vaginosis) 09/08/2016 Abnormal electrocardiography 06/15/2014 Alcohol use disorder, severe, dependence 014 Purging 09/21/2013 Bulimia nervosa 09/21/2013 ALVAREZ II (cervical intraepithelial neoplasia II) 0 11/08/2012 Smoker 10/14/2012 Mirena IUD insertion 12/09/2011 Overview (04/25/2013): Lot # [id number] Remove November 2016 Problem list name updated by automated process. Provider to review and confirm Mild recurrent major depression 01/23/2011 ALVAREZ III (cervical intraepithelial neoplasia III) 10/15/2010 Overview (08/29/2018): 10/03/10 LSIL pap, colpo ALVAREZ I,II,III S/p LEEP in 10/03 pos for ALVAREZ 2 w neg margins 01/20/11 ASCUS pap Positive HPV. Pt to have colp post . EDC 07/05/1111/04 ASCUS ,+HPV, undetermined risk 02/03 ASCUS,+HPV, undetermined risk, colpo ALVAREZ I. Repeat pap & colp in 6 months 10/05 Pap Ascus +HPV 58, [place] ALVAREZ I-II 11/05 LEEP ALVAREZ I-II, + margins, in reminders for colp in 4-6 months per ASCCP guidelines 01/01/14 Dx pap NIL. HPV Neg. [place] ALVAREZ I. Plan: [place] in 6 months 08/2014: NIL pap, neg HPV. [place] - no dysplasia. Plan cotest in 1 yr. Tracking started. 01/05/17 NIL, Neg HPV. Plan 1 yr co-test per visit notes 08/29/18 Patient is lost to pap tracking follow-up. Cystic acne 02/21/2010 CARDIOVASCULAR SCREENING; LDL GOAL LESS THAN 160 09/04/2009 Panic disorder 08/28/2008 Overview (08/28/2008): Suicide attempt in 2004. Resolved Problems Problem Noted Date Diagnosed Date Resolved Date Health Custodial 11/08/2015 01/10/2024 Mild major depression 09/20/20132016 Attention deficit disorder 09/20/2013 0 02/19/2017 Overview (04/26/2015): Problem list name updated by automated process. Provider to review Marginal placenta previa 02/05/2011 Overview (05/10/2011): By U/S at 18 wks Resolved on U/S 05/07/11 Encounter for supervision of other normal 01/23/2011 11/03/2011 Overview (05/27/2015): Diagnosis updated by automated process. Provider to review and confirm. 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 Not on file Not on file Not on file Last Filed Vital Signs Vital Sign Reading Time Taken Comments Blood Pressure 136/86 03/28/2024 11:53 AM CDT Pulse 101 03/28/2024 11:53 AM CDT Temperature 36.7 ??C (98.1 ??F) 03/28/2024 1 1:53 AM CDT Respiratory Rate 18 03/28/2024 11:5 3 AM CDT Oxygen Saturation 100% 03/28/2024 11: 53 AM CDT Inhaled Oxygen Concentration - - Weight 58.9 kg (129 lb 12.8 oz) 018 12:46 PM INDUSTRIAL CHEMISTRY TEACHER Height 170.2 cm (5' 7) 08/12/2017 12:4 6 PM INDUSTRIAL CHEMISTRY TEACHER Body Mass Index 20.33 08/12/2017 12:46 PM INDUSTRIAL CHEMISTRY TEACHER Plan of Treatment Health Maintenance Due Date Last Done Comments ADVANCE CARE PLANNING 1984 ANNUAL REVIEW OF HM ORDERS 1984 COPD ACTION PLAN 1984 SPIROMETRY 1984 YEARLY PREVENTIVE VISIT 1984 HEPATITIS A IMMUNIZATION (1 of 2 - Risk 2-dose series) 10/23/2003 HEPATITIS B IMMUNIZATION (1 of 3 - 19+ 3-dose series) 10/23/2003 Pneumococcal Vaccine: Pediatrics (0 to 5 Years) and At-Risk Patients (6 to 64 Years) (2 of 2 - PCV) 06/28/2012 06/28/2011 HPV TEST 01/05/2018 01/05/2017 PAP 01/05/2018 01/05/2017, 08/26, 09/04/2014, Additional history exists PHQ-9 02/09/2018 08/12/2017, 01/24, 01/05/2017, Additional history exists GLUCOSE 07/30/2020 07/30/2017, 08/2017, 01/20/2017, Additional history exists COVID-19 Vaccine ( season) 2024 05/05/2021 INFLUENZA VACCINE (#1) 2024 , 06/09/2016, 08/01/2014, Additional history exists DTAP/TDAP/TD IMMUNIZATION (3 - Td or Tdap) 09/28/2028 09/28/2018, 06/28/2011 RSV VACCINE (1 - 1-dose 75+ series) 10/23/2059 HEPATITIS C SCREENING Completed 10/11/2012 HIV SCREENING Completed 08/20/2015, 09/23, 01/20/2011, Additional history exists DEPRESSION ACTION PLAN Completed 6, 04/08/2015, 10/25/2013 HPV IMMUNIZATION Aged Out No longer e ligible based on patient's age to complete this topic MENINGITIS IMMUNIZATION Aged Out No l onger eligible based on patient's age to complete this topic RSV MONOCLONAL ANTIBODY Aged Out No l onger eligible based on patient's age to complete this topic Procedures Procedure Name Priority Date/Time Associated Diagnosis Comments GROUP A STREPTOCOCCUS PCR THROAT SWAB Routine 03/28/2024 11:54 AM CDT Viral illness STREPTOCOCCUS A RAPID SCREEN W REFELX TO PCR Routine 03/28/2024 11:54 AM CDT Viral illness COVID-19 VIRUS (CORONAVIRUS) BY PCR Routine 03/28/2024 11:54 AM CDT Encounter for screening for COVID-19 COMPREHENSIVE METABOLIC PANEL STAT 07/30/2017 10:12 PM INDUSTRIAL CHEMISTRY TEACHER PAP IMAGED THIN LAYER SCREEN Routine 01/05/2017 3:08 PM CDT Encounter for gynecological examination without abnormal finding HPV HIGH RISK TYPES DNA CERVICAL Routine 01/05/2017 3:05 PM CDT Encounter for gynecological examination without abnormal finding HIV ANTIGEN ANTIBODY COMBO Routine 08/20/2015 4:34 PM INDUSTRIAL CHEMISTRY TEACHER Screening for HIV (human immunodeficiency virus) HEPATITIS C ANTIBODY Routine 10/11/2012 3:09 PM CDT STD (female) from Last 3 Months or Most Recently Relevant to Health Maintenance Results * Symptomatic COVID-19 Virus (Coronavirus) by PCR Nose (03/28/2024 11:54 AM CDT) SARS CoV2 PCR Negative Negative 03/28/2024 5:46 PM CDT [facility] Comment:NEGATIVE: SARS-CoV-2 (COVID-19) RNA not detected, presumed negative. Swab NASAL STRUCTURE / Unknown Non-blood Collection / Unknown 03/28/2024 11:54 AM CDT 03/28/2024 12:06 PM CDT Narrative [facility] - 03/28/2024 5:46 PM CDT Testing was performed using the Aptima SARS-CoV-2 Assay on the Pix4D Instrument System. Additional information about this Emergency Use Authorization (EUA) assay can be found via the Lab Guide. This test should be ordered for the detection of SARS-CoV-2 in individuals who meet SARS-CoV-2 clinical and/or epidemiological criteria. Test performance is unknown in asymptomatic patients. This test is for in vitro diagnostic use under the FDA EUA for laboratories certified under CLIA to perform high complexity testing. This test has not been FDA cleared or approved. A negative result does not rule out the presence of PCR inhibitors in the specimen or target RNA in concentration below the limit of detection for the assay. The possibility of a false negative should be considered if the patient's recent exposure or clinical presentation suggests COVID-19. This test was validated by the [facility] Infectious Diseases Diagnostic [facility]. This laboratory is certified under the Clinical Laboratory Improvement Amendments of 1988 (CLIA-88) as qualified to perform high complexity laboratory testing. Francis Quinonez PA-C LAB - MICRO GENERAL ORDERABLE S Final Result [facility] Inf. Diseases Diag. Lab [address] [facility], [address] [place] [address], [facility] * Streptococcus A Rapid Screen w/Reflex to PCR - Clinic Collect (03/28/2024 11:54 AM CDT) Group A Strep antigen Negative Negative 03/28/2024 12:15 PM CDT [facility] Swab STRUCTURE OF ANTERIOR PORTION OF NECK / Unknown Non-blood Collection / Unknown 03/28/2024 11:54 AM CDT 03/28/2024 12:06 PM CDT Francis Quinonez PA-C LAB - Effective Measure GENERAL ORDERABLE S Final Result [facility] [address] * Group A Streptococcus PCR Throat Swab (03/28/2024 11:54 AM CDT) Group A strep by PCR Not Detected Not Detected 03/28/2024 3:23 PM CDT [facility] Swab STRUCTURE OF ANTERIOR PORTION OF NECK / Unknown Non-blood Collection / Unknown 03/28/2024 11:54 AM CDT 03/28/2024 12:15 PM CDT Narrative [facility] - 03/28/2024 3:23 PM CDT The Xpert Xpress Strep A test, performed on the [employer]jp?? OBOOK Systems, is a rapid, qualitative in vitro diagnostic test for the detection of Streptococcus pyogenes (Group A ? - hemolytic Streptococcus, Strep A) in throat swab specimens from patients with signs and symptoms of pharyngitis. The Xpert Xpress Strep A test can be used as an aid in the diagnosis of Group A Streptococcal pharyngitis. The assay is not intended to monitor treatment for Group A Streptococcus infections. The Xpert Xpress Strep A test utilizes an automated real-time polymerase chain reaction (PCR) to detect Streptococcus pyogenes DNA. Francis Quinonez PA-C LAB - MICRO GENERAL ORDERABLE S Final Result [facility] Inf. Diseases Diag. Lab [address] [facility] [place] [address] * (ABNORMAL) Comprehensive metabolic panel (07/30/2017 10:12 PM [facility]) Sodium 142 133 - 144 mmol/L 07/30/2017 10:54 PM [facility] Potassium 4.2 3.4 - 5.3 mmol/L 07/30/2017 10:54 PM [facility] Chloride 110(H) 94 - 109 mmol/L 07/30/2017 10:54 PM [facility] Carbon Dioxide 23 20 - 32 mmol/L 07/30/2017 10:54 PM [facility] Anion Gap 9 3 - 14 mmol/L 07/30/2017 10:54 PM [facility] Glucose 83 70 - 99 mg/dL 07/30/2017 10:54 PM [facility] Urea Nitrogen 9 7 - 30 mg/dL 07/30/2017 10:54 PM [facility] Creatinine 0.85 0.52 - 1.04 mg/dL 07/30/2017 10:54 PM [facility] GFR Estimate 77 >60 mL/min/1.7 m2 07/30/2017 10:54 PM [facility] Comment:Non GFR Calc GFR Estimate If Black >90 >60 mL/min/1.7 m2 07/30/2017 10:54 PM [facility] Comment: GFR Calc Calcium 8.3(L) 8.5 - 10.1 mg/dL 07/30/2017 10:54 PM [facility] Bilirubin Total 0.5 0.2 - 1.3 mg/dL 07/30/2017 10:54 PM [facility] Albumin 3.8 3.4 - 5.0 g/dL 07/30/2017 10:54 PM [facility] Protein Total 7.5 6.8 - 8.8 g/dL 07/30/2017 10:54 PM [facility] Alkaline Phosphatase 53 40 - 150 U/L 07/30/2017 10:54 PM [facility] ALT 18 0 - 50 U/L 07/30/2017 10:54 PM INDUSTRIAL CHEMISTRY TEACHER [facility] AST 18 0 - 45 U/L 07/30/2017 10:54 PM [facility] Blood specimen (specimen) 07/30/2017 10:12 PM INDUSTRIAL CHEMISTRY TEACHER 07/30/2017 10:31 PM INDUSTRIAL CHEMISTRY TEACHER us Judi Garner MD LAB - BLOOD ORDERABLE S Final Result [facility] [address] [place] [address], [facility] [phone] * Pap imaged thin layer screen with HPV - recommended age 30 - 65 years (select HPV order below) (01/05/2017 3:08 PM CDT) PAP JOHANN Goodwin Report Patient Name: ALANA RAINES MR#: [id number] Specimen #: [id number] Collected: 01/05/2017 Received: 01/06/2017 Reported: 01/07/2017 15:24 Ordering Phy(s): SANDRA CASTORENA For improved result formatting, select 'View Enhanced Report Format' under Linked Documents section. SPECIMEN/STAIN PROCESS: Pap imaged thin layer prep screening (Surepath, FocalPoint with guided screening) ? Pap-Cyto x 1, HPV ordered x 1 SOURCE: Cervical, endocervical Pap imaged thin layer prep screening (Surepath, FocalPoint with guided screening) SPECIMEN ADEQUACY: Satisfactory for evaluation. -Transformation zone component present. CYTOLOGIC INTERPRETATION: Negative for intraepithelial lesion or malignancy Electronically signed out by: ANIL Barnard (ASCP) Processed and screened at [facility], Pending Sale To [facility] CLINICAL HISTORY: Currently not having periods, Intra-Uterine Device, Previous normal pap Date of Last Pap: 09/04/2014, Papanicolaou Test Limitations: ??Cervical cytology is a screening test with limited sensitivity; regular screening is critical for cancer prevention; Pap tests are primarily effective for the diagnosis/preventi on of squamous cell carcinoma, not adenocarcinomas or other cancers. TESTING LAB LOCATION: [facility] [address] [place], [place] ??[address] COLLECTION SITE: Client: [facility] Location: [facility] (R) [facility] Cytologic material (specimen) 01/05/2017 3:08 PM CDT 01/06/2017 11:32 AM CDT Sandra Castorena MD LAB - OPTIME CLINI SHERLY SPECIMEN Final Result [facility] * HPV High Risk Types DNA Cervical (01/05/2017 3:05 PM CDT) HPV 16 DNA Negative [facility] HPV 18 DNA Negative [facility] Other HR HPV Negative [facility] Final Diagnosis This patient's sample is negative for HPV DNA. (Note) METHODOLOGY: ??The Laura saeed 4800 system uses automated extraction, simultaneous amplification of HPV (L1 region) and beta-globin, followed by ??real time detection of fluorescent labeled HPV and beta globin using specific oligonucleotide probes . The test specifically identifies types HPV 16 DNA and HPV 18 DNA while concurrently detecting the rest of the high risk types (31, 33, 35, 39, 45, 51, 52, 56, 58, 59, 66 or 68). COMMENTS: ??This test is not intended for use as a screening device for women under age 30 with normal cervical cytology. ??Results should be correlated with cytologic and histologic findings. Close clinical followup is recommended. This test was developed and its performance characteristics determined by the [facility], Molecular Diagnostics Laboratory. It has not been cleared or approved by the FDA. The laboratory is regulated under CLIA as qualified to perform high-complexity testing. This test is used for clinical purposes. It should not be regarded as investigational or for research. [facility] Specimen Description Cervical Cells [id number] [facility] Cervical Cells 01/05/2017 3: 05 PM CDT 01/05/2017 3:19 PM CDT us Sandra Castorena MD LAB - BLOOD ORDERA BLES Final Result [facility] [address] [place] [address] * HIV Antigen Antibody Combo (08/20/2015 4:34 PM INDUSTRIAL CHEMISTRY TEACHER) HIV Antigen Antibody Combo Nonreactive HIV-1 p24 Ag & HIV-1/HIV-2 Ab Not Detected NR [facility] Blood specimen (specimen) 08/20/2015 4:34 PM INDUSTRIAL CHEMISTRY TEACHER 08/20/2015 4:35 PM INDUSTRIAL CHEMISTRY TEACHER us Tanvi Akins MD LAB - BLOOD ORDERABLES Final R esult [facility] [address] [place] [address] * Hepatitis C antibody (10/11/2012 3:09 PM CDT) Hepatitis C Antibody Negative [facility] Blood specimen (specimen) 10/11/2012 3:09 PM CDT 10/11/2012 3:10 PM CDT us Joel Landry MD LAB - BLOOD ORDERABLES Final Re sult [address] from Last 3 Months or Most Recently Relevant to Health Maintenance [place] [address] [address] [place] [address] [facility] Advance Directives For more information, please contact: [phone] * Full Code (Latest Code Status on File) Date Activated Date Inactivated Comments 07/26/2017 8:34 PM 07/28/2017 2:00 PM Care Teams Centrifugal Extractor Operator Relationship Specialty Start Date End Date Arthur Alejo MD [facility] [address] [place] [address] PCP - General Family Medicine 03/28/24
--- OUTSIDE RECORDS SUMMARY | 2024-05-31 09:38 | XMS_ITS | Encounter Summary ---
Author Organization [facility] Address [address] [place] [address] Care Team Providers Care Survey Instrument Operator Name Role Phone Joel Landry MD Primary Care Provider [phone] Oliva Boyce MD Primary Care Provider [phone] Evin Tavarez MD Primary Care Provider [phone] Oliva Boyce MD Primary Care Provider [phone] Tracee Omalley APRN HEAD OF MARKETING ADOMETRY Unavailable Oliva Boyce MD Unavailable [phone] Oliva Boyce MD Unavailable [phone] Oanh Castorena MD Unavailable + Oliva Boyce MD Unavailable [phone] Arthur Alejo MD Primary Care Provider [phone] Encounter Details Date Type Department Care Team (Late st Contact Info) Description 10/03/2012 MyC Medical Advice [facility] [address] [place] [address] [place] [address] Joel Landry MD [address] [place] [address] 100 131 160 [place], [place] [address] Social History Tobacco Use Types Packs/Day Years Used Date Smoking Tobacco: Former Cigarettes 0.5 10 Smokeless Tobacco: Never Alcohol Use Standard Drinks/Week Comments No 0 (1 standard drink = 0.6 oz pur e alcohol) Comments No Sex and Gender Information Value Date Recorded Sex Assigned at Not on file 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 Gender Identity Not on file Sexual Orientation Not on file documented as of this encounter Plan of Treatment Not on file documented as of this encounter Visit Diagnoses Not on filedocumented in this encounter Additional Health Concerns Infection Onset Date Last Indicated Resolved Time Rule Out COVID-19 03/28/2024 03/28/2024 03/28/2024 5:46 PM CDT documented as of this encounter Care Teams Survey Instrument Operator Relationship Specialty Start Date End Date Joel Landry MD [address] [facility] [address] [place] [address] PCP - General coal handler 05/02/11 09/19/13 Oliva Boyce MD [address] [place] [address] [place] [address] PCP - General Internal Medicine 09/20/13 11/06/15 Evin Tavarez MD [address] [place] [address] [place] [address] PCP - General Internal Medicine 11/07/15 11/25/15 Oliva Boyce MD [address] [place] [address] [place] [address] PCP - General Internal Medicine 11/26/15 03/27/24 Tracee Omalley APRN HEAD OF MARKETING ADOMETRY [address] [place] [address] [place] [address] PCP - Assigned PCP 01/23/18 08/13/18 Oliva Boyce MD [address] [place] [address] [place] [address] PCP - Assigned PCP 08/14/18 09/27/18 Arthur Alejo MD [facility] [address] [place] [address] PCP - General Family Medicine 03/28/24 Oliva Boyce MD [facility] [facility] [place] [address] Assigned PCP 08/14/18 12/17/18 Oanh Castorena MD PRIMARY [facility] [address] [place] [address] Assigned PCP 12/18/18 07/29/19 Oliva Boyce MD [address] [facility] [place] [address] Assigned PCP 07/30/19 01/20/20 documented as of this encounter
--- OUTSIDE RECORDS SUMMARY | 2024-05-31 09:38 | XMS_ITS | Encounter Summary ---
Author Organization [facility] Address [address] [place] [address] Care Team Providers Care Cardiology Associate Name Role Phone Oliva Boyce MD Primary Care Provider [phone] Evin Tavarez MD Primary Care Provider [phone] Oliva Boyce MD Primary Care Provider [phone] Tracee Omalley APRN RELOCATION DIRECTOR Unavailable Oliva Boyce MD Unavailable [phone] Oliva Boyce MD Unavailable [phone] Oanh Castorena MD Unavailable + Oliva Boyce MD Unavailable [phone] Arthur Alejo MD Primary Care Provider [phone] Reason for Visit * Reason Onset Date Comments Medication Request 03/08/2015 something for anxiety Encounter Details Date Type Department Care Team (Late st Contact Info) Description 03/08/2015 MyC Medical Advice [facility] [address] [facility] [place] [address] Oliva Boyce MD [address] 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 Not on [...] documented as of this encounter Care Teams Cardiology Associate Relationship Specialty Start Date End Date Oliva Boyce MD [address] [place] [address] [place] [address] PCP - General Internal Medicine 09/20/13 11/06/15 Evin Tavarez MD [address] [place] [address] [place] [address] PCP - General Internal Medicine 11/07/15 11/25/15 Oliva Boyce MD [address] [place] [address] [place] [address] PCP - General Internal Medicine 11/26/15 03/27/24 Tracee Omalley APRN RELOCATION DIRECTOR [address] [place] [address] [place] [address] PCP - Assigned PCP 01/23/18 08/13/18 Oliva Boyce MD [address] [facility] [place] [address] PCP - Assigned PCP 08/14/18 09/27/18 Arthur Alejo MD [facility] [address] [place] [address] PCP - General Family Medicine 03/28/24 [place] [address] [place] [address] [place] [address] Assigned PCP 08/14/18 12/17/18 Oanh Castorena MD PRIMARY E[facility] [address] [place] [address] Assigned PCP 12/18/18 07/29/19 Oliva Boyce MD [address] [facility] [place] [address] Assigned PCP 07/30/19 01/20/20 documented as of this encounter
--- OUTSIDE RECORDS SUMMARY | 2024-05-31 09:38 | XMS_ITS | Encounter Summary ---
Author Organization [facility] Address [address] [place] [address] Care Team Providers Care Recreation Supervisor Name Role Phone Arthur Alejo MD Primary Care Provider [phone] Reason for Visit * Reason Comments Pharyngitis Started Wednesday sor e throat body aches fever diarrhea, cough that can't get out of chest SOB at the end of the day Encounter Details Date Type Department Care Team (Late st Contact Info) Description 03/28/2024 11:45 AM CDT Office Visit [address] [address] Francis Quinonez, VAUGHN [address] [place] [id number] Viral illness (Primary Dx); COPD exacerbation (H); Encounter for screening for COVID-19 Social History Tobacco Use Types Packs/Day Years [...] on file Legal Sex Female 3:36 AM BOX STACKER Gender Identity Not on file Sexual Orientation Not on file 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 This is likely due to a viral illness. Symptom management: - Get plenty of rest - Avoid smoking and second hand smoke - May take tylenol or ibuprofen for fever/discomfort - Drink plenty of non-caffeinated fluids - Use nasal steroid spray for sinus congestion - Albuterol inhaler may be used every 6 hours as needed for chest tightness Reasons to be seen in the emergency room: - Develop a fever of 100.4 or higher - Cough changes, coughing up blood, or become short of breath - Neck stiffness - Chest pain - Severe headache - Unable to tolerate eating or drinking fluids Otherwise, if no symptom improvement after 5 days, follow-up with your primary care provider. How can I protect others? Discharge Instructions for COVID-19 precaustions: If you have symptoms (fever, cough, body aches or trouble breathing): Stay home and away from others (self-isolate) until: At least 10 days have passed since your symptoms started. And??? You've had no fever--and no medicine that reduces fever--for 1 full day (24 hours). And??? Your other symptoms have resolved (gotten better) OR you have a negative covid test. Call [phone] for treatment if the COVID 19 test is positive. documented in this encounter Progress Notes * Francis Quinonez PA-C - 03/28/2024 11:45 AM CDT Patient presents with: Pharyngitis: Started Wednesday sore throat body aches fever diarrhea, cough that can't get out of chest SOB at the end of the day Clinical Decision Making: Strep test was obtained and was negative. Culture is to follow. COVID-19 screening test is pending.Patient has a history of COPD and has had an exacerbation. Albuterol inhaler was renewed and MDI spacer was dispensed in the office. Patient is treated with Tessalon Perles and albuterol inhaler for cough. Symptomatic care was gone over. Expected course of resolution and indication for return was gone over and questions were answered to patient/parent's satisfaction before discharge. ICD-10-CM 1. Viral illness B34.9 albuterol (PROAIR HFA/PROVENTIL HFA/VENTOLIN HFA) 108 (90 Base) MCG/ACT inhaler Optichamber/Spacer Order for DME - ONLY FOR DME benzonatate (TESSALON) 100 MG capsule 2. COPD exacerbation (H) J44.1 albuterol (PROAIR HFA/PROVENTIL HFA/VENTOLIN HFA) 108 (90 Base) MCG/ACT inhaler Optichamber/Spacer Order for DME - ONLY FOR DME benzonatate (TESSALON) 100 MG capsule 3. Encounter for screening for COVID-19 Z11.52 Symptomatic COVID-19 Virus (Coronavirus) by PCR Nose 4. Fever R50.9 Symptomatic COVID-19 Virus (Coronavirus) by PCR Nose Streptococcus A Rapid Screen w/Reflex to PCR - Clinic Collect Group A Streptococcus PCR Throat Swab Patient Instructions You were seen today for acute bronchitis. This is likely due to a viral illness. Symptom management: - Get plenty of rest - Avoid smoking and second hand smoke - May take tylenol or ibuprofen for fever/discomfort - Drink plenty of non-caffeinated fluids - Use nasal steroid spray for sinus congestion - Albuterol inhaler may be used every 6 hours as needed for chest tightness Reasons to be seen in the emergency room: - Develop a fever of 100.4 or higher - Cough changes, coughing up blood, or become short of breath - Neck stiffness - Chest pain - Severe headache - Unable to tolerate eating or drinking fluids Otherwise, if no symptom improvement after 5 days, follow-up with your primary care provider. How can I protect others? Discharge Instructions for COVID-19 precaustions: If you have symptoms (fever, cough, body aches or trouble breathing): Stay home and away from others (self-isolate) until: At least 10 days have passed since your symptoms started. And??? You've had no fever--and no medicine that reduces fever--for 1 full day (24 hours). And??? Your other symptoms have resolved (gotten better) OR you have a negative covid test. Call [phone] for treatment if the COVID 19 test is positive. HPI: Alana Ya is a 38 year old female who has a past medical history for COPD who presents today for a 4-day history of sore throat odynophagia fever diarrhea and cough. Patient states that she has had shortness of breath but no loss of taste or smell fatigue nausea and diarrhea but no vomitingmyalgias arthralgias and headache. Patient has tried [id number] Tylenol, ibuprofen and [place] without relief. Patient performed an at home COVID test Wednesday, 2 days ago. Patient does not have an albuterol inhaler as she is out of the medication and does not have an MDI spacer for her albuterol inhaler. History obtained from chart review and the patient. Problem List: 2017-07: Alcohol withdrawal (H) 2017-07: Anxiety 2017-07: Chemical dependency (H) 2016-08: BV (bacterial vaginosis) 2015-10: Health Alf 2014-05: Abnormal electrocardiography 2014-05: Alcohol use disorder, severe, dependence (H) 2013-08: Purging (H28) 2013-08: Bulimia nervosa (H28) 2013-08: Mild major depression (H) 2013-08: Attention deficit disorder 2012-10: ALVAREZ II (cervical intraepithelial neoplasia II) 2012-09: Smoker 2011-11: Mirena IUD insertion 2011-01: Marginal placenta previa 2011-01: Mild recurrent major depression (H24) 2011-01: Encounter for supervision of other normal 2010-12: Smoking complicating , childbirth, or the puerperium 2010-09: ALVAREZ III (cervical intraepithelial neoplasia III) 2010-01: Cystic acne 2009-08: CARDIOVASCULAR SCREENING; LDL GOAL LESS THAN 160 2008-08: Panic disorder Past Medical History: Diagnosis Date ASCUS on Pap smear 11/04,02/03 + HPV undeterimined risk, colpo ALVAREZ I Bulimia ALVAREZ 3 - cervical intraepithelial neoplasia grade 3 LEEP 10/16/10 Depression Depressive disorder Eating disorder 09/21/2013 History of colposcopy with cervical biopsy 10/03/10,02/03 ALVAREZ I,II,III Panic disorder 08/28/2008 Social History Tobacco Use Smoking status: Some Days Current packs/day: 1.00 Average packs/day: 1 pack/day for 15.0 years (15.0 ttl pk-yrs) Types: Cigarettes Smokeless tobacco: Former Substance Use Topics Alcohol use: Yes Comment: 1 Liter of Vodka for past 5 weeks Review of Systems As above in HPI otherwise negative. Vitals: 03/28/24 1153 BP: 136/86 Pulse: 101 Resp: 18 Temp: 98.1 ??F (36.7 ??C) TempSrc: Oral SpO2: 100% General: Patient is resting comfortably no acute distress is afebrile HEENT: Head is normocephalic atraumatic eyes are PERRL EOMI sclera anicteric TMs are clear bilaterally Throat is with mild pharyngeal wall erythema and no exudate No cervical lymphadenopathy present LUNGS: Clear to auscultation bilaterally HEART: Regular rate and rhythm Skin: Without rash non-diaphoretic Physical Exam Labs: Results for orders placed or performed in visit on 03/28/24 Symptomatic COVID-19 Virus (Coronavirus) by PCR Nose Status: Normal Specimen: Nose; Swab Result Value Ref Range SARS CoV2 PCR Negative Negative Narrative Testing was performed using the Aptima SARS-CoV-2 Assay on the [employer] Instrument System. Additional information about this Emergency [...] COVID-19. This test was validated by the [facility]. This laboratory is certified under the Clinical Laboratory Improvement Amendments of 1988 (CLIA-88) as qualified to perform high complexity laboratory testing. Streptococcus A Rapid Screen w/Reflex to PCR - Clinic Collect Status: Normal Specimen: Throat; Swab Result Value Ref Range Group A Strep antigen Negative Negative Group A Streptococcus PCR Throat Swab Status: Normal Specimen: Throat; Swab Result Value Ref Range Group A strep by PCR Not Detected Not Detected Narrative The Xpert Xpress Strep A test, performed on the [employer] agency[employer] Systems, is a rapid, qualitative in vitro diagnostic test for the detection of Streptococcus pyogenes (Group A ??-hemolytic Streptococcus, Strep A) in throat swab specimens from patients with signs and symptoms of pharyngitis. The Xpert Xpress Strep A test can be used as an aid in the diagnosis of Group A Streptococcal pharyngitis. The assay is not intended to monitor treatment for Group A Streptococcus infections. The XpertXpress Strep A test utilizes an automated real-time polymerase chain reaction (PCR) to detect Streptococcus pyogenes DNA. At the end of the encounter, I discussed results, diagnosis, medications. Discussed red flags for immediate return to clinic/ER, as well as indications for follow up if no improvement. Patient understood and agreed to plan. Patient was stable for discharge. documented in this encounter Plan of Treatment Not on file documented as of this encounter Procedures Procedure Name Priority Date/Time Associated Diagnosis Comments COVID-19 VIRUS (CORONAVIRUS) BY PCR Routine 03/28/2024 11:54 AM CDT Encounter for screening for COVID-19 STREPTOCOCCUS A RAPID SCREEN W REFELX TO PCR Routine 03/28/2024 11:54 AM CDT Viral illness GROUP A STREPTOCOCCUS PCR THROAT SWAB Routine 03/28/2024 11:54 AM CDT Viral illness documented in this encounter Results * Group A Streptococcus PCR Throat Swab [...] Xpress Strep A test, performed on the [employer] Systems, is a rapid, qualitative in vitro [...] Streptococcus pyogenes DNA. Francis Quinonez PA-C LAB [email or web address] GENERAL ORDERABLE S Final Result [facility] Inf. Diseases Diag. Lab [address] [place] [address] * Streptococcus A Rapid Screen w/Reflex to PCR - Clinic Collect (03/28/2024 11:54 AM CDT) Group A Strep antigen Negative Negative 03/28/2024 12:15 PM CDT [facility] Swab STRUCTURE OF ANTERIOR PORTION OF NECK / Unknown Non-blood Collection / Unknown 03/28/2024 11:54 AM CDT 03/28/2024 12:06 PM CDT Francis Quinonez PA-C LAB - [email or web address] GENERAL ORDERABLE S Final Result [facility] [address] * Symptomatic COVID-19 Virus (Coronavirus) by PCR [...] using the Aptima SARS-CoV-2 Assay on the [employer] Instrument System. Additional information about this Emergency [...] COVID-19. This test was validated by the [facility]. This laboratory is certified under the Clinical Laboratory Improvement Amendments of 1988 (CLIA-88) as qualified to perform high complexity laboratory testing. Francis Quinonez PA-C LAB - MICRO GENERAL ORDERABLE S Final Result [facility] Inf. Diseases Diag. Lab [address] [place] [address], [facility] documented in this encounter Visit Diagnoses Diagnosis Viral illness- Primary Unspecified viral infection, in conditions classified elsewhere and of unspecified site COPD exacerbation (H) Obstructive chronic bronchitis with exacerbation Encounter for screening for COVID-19 documented in this encounter Additional Health Concerns Infection Onset Date Last Indicated Resolved Time Rule Out COVID-19 03/28/2024 03/28/2024 03/28/2024 5:46 PM CDT Assessment Noted Time PHQ-9 Depression Total Score: 7 08/12/19 18 2:02 PM BOX STACKER documented as of this encounter Care Teams Recreation Supervisor Relationship Specialty Start Date End Date Arthur Alejo MD [facility] [address] [address] PCP - General Family Medicine 03/28/24 documented as of this encounter
--- OUTSIDE RECORDS SUMMARY | 2024-05-31 09:38 | XMS_ITS | Encounter Summary ---
Author Organization [facility] Address [address] [place] [address] Care Team Providers Care Coin Box Collector Name Role Phone Joel Landry MD Primary Care Provider [phone] Oliva Boyce MD Primary Care Provider [phone] Evin Tavarez MD Primary Care Provider [phone] Oliva Boyce MD Primary Care Provider [phone] Tracee Omalley APRN FRAME ALIGNER Unavailable Oliva Boyce MD Unavailable [phone] Oliva Boyce MD Unavailable [phone] Oanh Castorena MD Unavailable + Oliva Boyce MD Unavailable [phone] Arthur Alejo MD Primary Care Provider [phone] Encounter Details Date Type Department Care Team (Late st Contact Info) Description 09/04/2012 MyC Medical Advice [facility] [address] [place] [address] Joel Landry MD [facility] [address] [place], [place] [id number] Social History Tobacco Use Types Packs/Day Years Used Date Smoking Tobacco: Former Cigarettes 0.5 10 Smokeless Tobacco: Never Alcohol Use Standard Drinks/Week Comments No 0 (1 standard drink = 0.6 oz pur e alcohol) Comments No Sex and Gender Information Value Date Recorded Sex Assigned at Not on file 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 Gender Identity Not on file Sexual Orientation Not on file documented as of this encounter Plan of Treatment Not on file documented as of this encounter Visit Diagnoses Not on filedocumented in this encounter Additional Health Concerns Infection Onset Date Last Indicated Resolved Time Rule Out COVID-19 03/28/2024 03/28/2024 03/28/2024 5:46 PM CDT documented as of this encounter Care Teams Coin Box Collector Relationship Specialty Start Date End Date Joel Landry MD [address] [facility] [address] [place] [address] PCP - General material handling supervisor 05/02/11 09/19/13 Oliva Boyce MD [address] [place] [address] [place] [id number] PCP - General Internal Medicine 09/20/13 11/06/15 Evin Tavarez MD [address] [place] [address] [place] [id number] PCP - General Internal Medicine 11/07/15 11/25/15 Oliva Boyce MD [address] [place] [address] [place] [id number] PCP - General Internal Medicine 11/26/15 03/27/24 Tracee Omalley APRN FRAME ALIGNER [address] [place] [address] [place] [id number] PCP - Assigned PCP 01/23/18 08/13/18 Oliva Boyce MD [address] [place] [address] [place] [address] PCP - Assigned PCP 08/14/18 09/27/18 Arthur Alejo MD [facility] [address] [place] [address] PCP - General Family Medicine 03/28/24 Oliva Boyce MD [address] [facility] [place] [address] Assigned PCP 08/14/18 12/17/18 Oanh Castorena MD [facility] [address] [place] [address] Assigned PCP 12/18/18 07/29/19 Oliva Boyce MD [address] [facility] [place] [address] Assigned PCP 07/30/19 01/20/20 documented as of this encounter
--- OUTSIDE RECORDS SUMMARY | 2024-05-31 09:38 | XMS_ITS | Referral Summary ---
Author Organization [facility] Address [address] [place] [address] Care Team Providers Care Shore Working Supervisor Name Role Phone Arthur Alejo MD Primary Care Provider [phone] Encounters Date Type Department Care Team Description 03/28/2024 Travel 03/28/2024 11:45 AM CDT Office Visit [address] [address] Francis Quinonez, PATrell Viral illness (Primary Dx); COPD exacerbation (H); Encounter for screening for COVID-19 from Last 3 Months Allergies Active Allergy Reactions Criticality Noted Date [...] each (20 mcg) by Intrauterine route continuous CQO=75606-936-52 7 Active FETZIMA 40 MG 24 hr [...] 6 months 10/05 Pap Ascus +HPV 58, [place] ALVAREZ I-II 11/05 LEEP ALVAREZ I-II, + margins, in reminders for colp in 4-6 months per ASCCP guidelines 01/01/14 Dx pap NIL. HPV Neg. [place] ALVAREZ I. Plan: [place] in 6 months 08/2014: NIL pap, neg HPV. [place] - no dysplasia. Plan cotest in 1 yr. Tracking started. 01/05/17 NIL, Neg HPV. Plan 1 yr co-test per visit notes 08/29/18 Patient is lost to pap tracking follow-up. Cystic acne 02/21/2010 CARDIOVASCULAR SCREENING; LDL GOAL LESS THAN 160 09/04/2009 Panic disorder 08/28/2008 Overview (08/28/2008): Suicide attempt in 2004. 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 Not on [...] (129 lb 12.8 oz) 018 12:46 PM HAIR AND MAKEUP DESIGNER Height 170.2 cm (5' 7) 08/12/2017 12:4 6 PM HAIR AND MAKEUP DESIGNER Body Mass Index 20.33 08/12/2017 12:46 PM HAIR AND MAKEUP DESIGNER Plan of Treatment Not on file Procedures Procedure Name Priority Date/Time Associated Diagnosis Comments GROUP A STREPTOCOCCUS PCR THROAT SWAB Routine 03/28/2024 11:54 AM CDT Viral illness STREPTOCOCCUS A RAPID SCREEN W REFELX TO PCR Routine 03/28/2024 11:54 AM CDT Viral illness COVID-19 VIRUS (CORONAVIRUS) BY PCR Routine 03/28/2024 11:54 AM CDT Encounter for screening for COVID-19 COMPREHENSIVE METABOLIC PANEL STAT 07/30/2017 10:12 PM HAIR AND MAKEUP DESIGNER PAP IMAGED THIN LAYER SCREEN Routine 01/05/2017 3:08 PM CDT Encounter for gynecological examination without abnormal finding HPV HIGH RISK TYPES DNA CERVICAL Routine 01/05/2017 3:05 PM CDT Encounter for gynecological examination without abnormal finding HIV ANTIGEN ANTIBODY COMBO Routine 08/20/2015 4:34 PM HAIR AND MAKEUP DESIGNER Screening for HIV (human immunodeficiency virus) HEPATITIS [...] PM CDT Testing was performed using the Aptdot429 SARS-CoV-2 Assay on the HealthSpring Instrument System. Additional information about this Emergency [...] This test was validated by the [facility] Infectious Diseases Diagnostic Laboratory. This laboratory is certified under the Clinical Laboratory Improvement Amendments of 1988 (CLIA-88) as qualified to perform high complexity laboratory testing. Francis Quinonez PA-C LAB - MICRO GENERAL ORDERABLE S Final Result [facility] Inf. Diseases Diag. Lab [address] [facility], [address] [place] [address], [facility] * Streptococcus A Rapid Screen w/Reflex to PCR - Clinic Collect (03/28/2024 11:54 AM CDT) Group A Strep antigen Negative Negative 03/28/2024 12:15 PM CDT [facility] Swab STRUCTURE OF ANTERIOR PORTION OF NECK / Unknown Non-blood Collection / Unknown 03/28/2024 11:54 AM CDT 03/28/2024 12:06 PM CDT Francis CHACKOC LAB - MICRO GENERAL ORDERABLE S Final Result [facility] [address] * Group A Streptococcus PCR Throat Swab (03/28/2024 11:54 AM CDT) Pathologist [facility] Group A strep by PCR Not Detected Not Detected 03/28/2024 3:23 PM CDT [facility] Swab STRUCTURE OF ANTERIOR PORTION OF NECK / Unknown Non-blood Collection / Unknown 03/28/2024 11:54 AM CDT 03/28/2024 12:15 PM CDT Narrative [facility] - 03/28/2024 3:23 PM CDT The Xpert Xpress Strep A test, performed on the Hashable?? Instrument Systems, is a rapid, qualitative in vitro [...] ORDERABLE S Final Result [facility] Inf. Diseases Diag. Lab [address] [facility], [address] [place] [address] * (ABNORMAL) Comprehensive metabolic panel (07/30/2017 10:12 PM HAIR AND MAKEUP DESIGNER) Pathologist [facility] Sodium 142 133 - 144 mmol/L 07/30/2017 10:54 PM [facility] Potassium 4.2 3.4 - 5.3 mmol/L 07/30/2017 10:54 PM [facility] Chloride 110(H) 94 - 109 mmol/L 07/30/2017 10:54 PM [facility] Carbon Dioxide 23 20 - 32 mmol/L 07/30/2017 10:54 PM [facility] Anion Gap 9 3 - 14 mmol/L 07/30/2017 10:54 PM [facility] Glucose 83 70 - 99 mg/dL 07/30/2017 10:54 PM [facility] Urea Nitrogen 9 7 - 30 mg/dL 07/30/2017 10:54 PM [facility] Creatinine 0.85 0.52 - 1.04 mg/dL 07/30/2017 10:54 PM [facility] GFR Estimate 77 >60 mL/min/1.7 m2 07/30/2017 10:54 PM [facility] Comment:Non GFR Calc GFR Estimate If Black >90 >60 mL/min/1.7 m2 07/30/2017 10:54 PM [facility] Comment: GFR Calc Calcium 8.3(L) 8.5 - 10.1 mg/dL 07/30/2017 10:54 PM [facility] Bilirubin Total 0.5 0.2 - 1.3 mg/dL 07/30/2017 10:54 PM [facility] Albumin 3.8 3.4 - 5.0 g/dL 07/30/2017 10:54 PM [facility] Protein Total 7.5 6.8 - 8.8 g/dL 07/30/2017 10:54 PM [facility] Alkaline Phosphatase 53 40 - 150 U/L 07/30/2017 10:54 PM [facility] ALT 18 0 - 50 U/L 07/30/2017 10:54 PM [facility] AST 18 0 - 45 U/L 07/30/2017 10:54 PM [facility] Blood specimen (specimen) 07/30/2017 10:12 PM HAIR AND MAKEUP DESIGNER 07/30/2017 10:31 PM [facility] us Judi Garner MD LAB - BLOOD ORDERABLE S Final Result [facility] [address] [phone] * Pap imaged thin layer screen with HPV - recommended age 30 - 65 years (select HPV order below) (01/05/2017 3:08 PM CDT) PAP NIL DEANNA Goodwin Report Patient Name: ALANA RAINES MR#: [id number] Specimen #: [id number] Collected: 01/05/2017 Received: 01/06/2017 Reported: 01/07/2017 15:24 [...] ANIL Barnard (ASCP) Processed and screened at [facility] CLINICAL HISTORY: Currently not having periods, Intra-Uterine Device, Previous normal pap Date of Last Pap: 09/04/2014, Papanicolaou Test Limitations: ??Cervical cytology is a screening test with limited sensitivity; regular screening is critical for cancer prevention; Pap tests are primarily effective for the diagnosis/preventi on of squamous cell carcinoma, not adenocarcinomas or other cancers. TESTING LAB LOCATION: [facility] [address] [place], [place] ??[address] COLLECTION SITE: Client: ??[facility] Location: [facility]FP (R) COPATH Cytologic material (specimen) 01/05/2017 3:08 PM CDT 01/06/2017 11:32 AM CDT us Sandra Castorena MD LAB - OPTIME CLINI [facility] SPECIMEN Final Result Performing Organization Address City/[facility]/ZIP Co de Phone Number COPATH * HPV High Risk Types DNA Cervical (01/05/2017 3:05 PM CDT) HPV 16 DNA Negative [facility] HPV 18 DNA Negative [facility] Other HR HPV Negative [facility] Final Diagnosis This patient's sample is negative [...] and its performance characteristics determined by the [facility], Molecular Diagnostics Laboratory. It has not been cleared or approved by the FDA. The laboratory is regulated under CLIA as qualified to perform high-complexity testing. This test is used for clinical purposes. It should not be regarded as investigational or for research. [facility] Specimen Description Cervical Cells [id number] [facility] Cervical Cells 01/05/2017 3: 05 PM CDT 01/05/2017 3:19 PM CDT us Sandra Castorena MD LAB - BLOOD ORDERA BLES Final Result Performing Organization Address City/[facility]/ZIP Co de Phone Number [facility] [address] [place] [address] * HIV Antigen Antibody Combo (08/20/2015 4:34 PM HAIR AND MAKEUP DESIGNER) HIV Antigen Antibody Combo Nonreactive HIV-1 p24 Ag & HIV-1/HIV-2 Ab Not Detected NR [facility] Blood specimen (specimen) 08/20/2015 4:34 PM HAIR AND MAKEUP DESIGNER 08/20/2015 4:35 PM HAIR AND MAKEUP DESIGNER us Tanvi Akins MD LAB - BLOOD ORDERABLES Final R esult [facility] [address] [place] [address] * Hepatitis C antibody (10/11/2012 3:09 PM CDT) Hepatitis C Antibody Negative NEG [facility] Blood specimen (specimen) 10/11/2012 3:09 PM CDT 10/11/2012 3:10 PM CDT us Joel Landry MD LAB - BLOOD ORDERABLES Final Re sult Performing Organization Address City/[facility]/ZIP Co de Phone Number [phone] [place] [address] from Last 3 Months or Most Recently Relevant to Health Maintenance [place] [address] [place] [address] [facility] Advance Directives For more information, please contact: [phone] * Full Code (Latest Code Status on File) Date Activated Date Inactivated Comments 07/26/2017 8:34 PM 07/28/2017 2:00 PM Care Teams Shore Working Supervisor Relationship Specialty Start Date End Date Arthur Alejo MD [facility] [address] [place] [address] PCP - General Family Medicine 03/28/24
--- OUTSIDE RECORDS SUMMARY | 2024-05-31 09:38 | XMS_ITS | Encounter Summary ---
Author Organization [place] Address [address] [place] [address] Care Team Providers Care Research Project Coordinator Name Role Phone Oliva Boyce MD Primary Care Provider [phone] Evin Tavarez MD Primary Care Provider [phone] Oliva Boyce MD Primary Care Provider [phone] Tracee Omalley APRN AIRLINE PILOT/FIRST OFFICER Unavailable Oliva Boyce MD Unavailable [phone] Oliva Boyce MD Unavailable [phone] Oanh Castorena MD Unavailable + Oliva Boyce MD Unavailable [phone] Arthur Alejo MD Primary Care Provider [phone] Reason for Visit * Reason Onset Date Comments Forms 11/29/2014 medical records Encounter Details Date Type Department Care Team (Late st Contact Info) Description 11/29/2014 MyC Medical Advice [facility] [address] [facility] [place] [address] Oliva Boyce MD [address] [facility] [place] [address] Forms (medical records) Social History Tobacco Use Types Packs/Day Years Used Date Smoking Tobacco: Some Days Cigarettes 0.5 10 Smokeless Tobacco: Never Alcohol Use Standard Drinks/Week Comments No 0 (1 standard drink = 0.6 oz pur e alcohol) Comments No Sex and Gender Information Value Date Recorded Sex Assigned at Not on file Legal Sex Female 3:36 AM CREATIVE DEVELOPER Gender Identity Not on file Sexual Orientation Not on file 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 Not on file Not on file documented as of this encounter Plan of Treatment Not on file documented as of this encounter Visit Diagnoses Not on filedocumented in this encounter Additional Health Concerns Infection Onset Date Last Indicated Resolved Time Rule Out COVID-19 03/28/2024 03/28/2024 03/28/2024 5:46 PM CDT documented as of this encounter Care Teams Research Project Coordinator Relationship Specialty Start Date End Date Oliva Boyce MD [address] [place] [address] [place] [address] PCP - General Internal Medicine 09/20/13 11/06/15 Evin Tavarez MD [address] [place] [address] [place] [address] PCP - General Internal Medicine 11/07/15 11/25/15 Oliva Boyce MD [address] [place] [address] [place] [address] PCP - General Internal Medicine 11/26/15 03/27/24 Tracee Omalley APRN CNP [address] [place] [address] [place] [address] PCP - Assigned PCP 01/23/18 08/13/18 Oliva Boyce MD [address] [place] [address] [place] [address] PCP - Assigned PCP 08/14/18 09/27/18 Arthur Alejo MD [facility] [address] [place] [address] PCP - General Family Medicine 03/28/24 Oliva Boyce MD [address] [facility] [place] [address] Assigned PCP 08/14/18 12/17/18 Oanh Castorena MD PRIMARY [facility] [address] [place] [id number] Assigned PCP 12/18/18 07/29/19 Oliva Boyce MD [address] [facility] [place] [address] Assigned PCP 07/30/19 01/20/20 documented as of this encounter
--- OUTSIDE RECORDS SUMMARY | 2024-05-31 09:38 | XMS_ITS | Encounter Summary ---
Author Organization [facility] Address [address] [place] [address] Care Team Providers Care Transformer Mechanic Name Role Phone Oliva Boyce MD Primary Care Provider [phone] Evin Tavarez MD Primary Care Provider [phone] Oliva Boyce MD Primary Care Provider [phone] Tracee Omalley APRN TELEPHONE STATION INSTALLER Unavailable Oliva Boyce MD Unavailable [phone] Oliva Boyce MD Unavailable [phone] Oanh Castoerna MD Unavailable + Oliva Boyce MD Unavailable [phone] Arthur Alejo MD Primary Care Provider [phone] Encounter Details Date Type Department Care Team (Late st Contact Info) Description 09/04/2015 MyC Medical Advice [address] [place] [address] Magdalena Levi, SERVICE CLERK Social History Tobacco Use Types Packs/Day Years Used Date Smoking Tobacco: Some Days Cigarettes 0.5 10 Smokeless Tobacco: Never Alcohol Use Standard Drinks/Week Comments No 0 (1 standard drink = 0.6 oz pur e alcohol) Comments No Sex and Gender Information Value Date Recorded Sex Assigned at Not on file Legal Sex Female 3:36 AM LUBE TECHNICIAN Gender Identity Not on file Sexual Orientation Not on file 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 [...] documented as of this encounter Care Teams Transformer Mechanic Relationship Specialty Start Date End Date Oliva Boyce MD [address] [place] [address] [place] [address] PCP - General Internal Medicine 09/20/13 11/06/15 Evin Tavarez MD [address] [place] [address] [place] [address] PCP - General Internal Medicine 11/07/15 11/25/15 Oliva Boyce MD [address] [place] [address] [place] [address] PCP - General Internal Medicine 11/26/15 03/27/24 Tracee Omalley APRN TELEPHONE STATION INSTALLER [address] [place] [address] [place] [address] PCP - Assigned PCP 01/23/18 08/13/18 Oliva Boyce MD [address] [place] [address] [place] [address] PCP - Assigned PCP 08/14/18 09/27/18 Arthur Alejo MD [place] [id number], [place] [address] PCP - General Family Medicine 03/28/24 Oliva Boyce MD [address] [facility] [place] [address] Assigned PCP 08/14/18 12/17/18 Oanh Castorena MD PRIMARY [facility] [address] [place] [address] Assigned PCP 12/18/18 07/29/19 Oliva Boyce MD [address] [facility] [place] [address] Assigned PCP 07/30/19 01/20/20 documented as of this encounter
--- NOTE | 2024-05-31 09:45 | CRLHL7_ITS ---
For Patients: As a result of the Century Cures Act, medical imaging exams and procedure reports are released immediately into your electronic medical record. You may view this report before your referring provider. If you have questions, please contact your health care provider. DIGITAL DIAGNOSTIC BILATERAL MAMMOGRAM USING TOMOSYNTHESIS AND COMPUTER-AIDED DETECTION BILATERAL BREAST ULTRASOUND INDICATION: 38-year-old female. BILATERAL periareolar/retroareolar breast pain for the last several months. No personal history of breast cancer biopsies. Reported family history of breast cancer newly diagnosed in an aunt at approximately age 60. TECHNIQUE: CC and MLO views were obtained. This digital study was evaluated with the assistance of computer-aided detection. Digital breast tomosynthesis utilized in the interpretation. COMPARISON: None. This is the patient`s baseline mammogram. FINDINGS: Breast Composition: The breasts are heterogeneously dense, which may obscure small masses. Within the inferomedial RIGHT breast approximately at the 5 o`clock position is an asymmetric nodular density. BILATERAL breast ultrasound including retroareolar imaging and imaging of the lower inner quadrant of the RIGHT breast will be performed. IMPRESSION: 1. No suspicious microcalcifications or regions of architectural distortion in either breast. 2. Asymmetry inferomedial RIGHT breast. 3. BILATERAL breast ultrasound recommended for the periareolar/retroareolar pain. ULTRASOUND: TECHNIQUE: Directed BILATERAL breast ultrasound with this radiologist present. Focused breast ultrasound lower inner quadrant RIGHT breast. FINDINGS: Heterogeneously dense breast tissue deep to both nipples. No underlying mass or architectural distortion or shadowing deep to either nipple. Within the inferomedial RIGHT breast at the 5 o`clock position 4 cm from the nipple is a small less than 1 cm cyst measuring 6 x 3 x 5 mm. These findings were discussed in detail with the patient. Further workup or follow-up regarding BILATERAL breast pain should be based on clinical grounds. Annual mammography is also recommended. BI-RADS Category 2: Benign A lay language report of this examination will be provided to the patient. Dictated by: Francis Briceño MD @05/31/2024 11:47:20 AM /Dictated by: Francis Briceño MD @ 05/31/2024 11:47:00 AM (Electronically Signed)
--- NOTE | 2024-05-31 10:15 | CRLHL7_ITS ---
For Patients: As a result of the Cures Act, medical imaging exams and procedure reports are released immediately into your electronic medical record. You may view this report before your referring provider. If you have questions, please contact your health care provider. PLEASE SEE DIGITAL DIAGNOSTIC BILATERAL MAMMOGRAM PERFORMED SAME DAY CRL:lynda howell/Dictated by: Francis Briceño MD @ 05/31/2024 11:48:00 AM (Electronically Signed)
== END 2024-05-31 09:36 | disposition home or self-care (01) ==
LOC: MAMMO 09:36
PROVIDERS: PCP Family Medicine; Visit Provider Family Medicine
DX: N64.4 Mastodynia (principal); R92.333 Mammographic heterogeneous density, bilateral breasts; N60.01 Solitary cyst of right breast
CPT/HCPCS: 76642; 77066; G0279

== ENCOUNTER 2025-02-15 12:52 | Outpatient (CLI) | payer BC, MEDICAID, SELFPAY | END 2025-02-15 12:53 | disposition home or self-care (01) | LOC: NFLDREF 02-17 18:50 | PROVIDERS: PCP Family Medicine; Referring Provider Family Medicine; Visit Provider Family Medicine | DX: Z20.1 Contact with and (suspected) exposure to tuberculosis (principal) | CPT/HCPCS: 86480 ==

== ENCOUNTER 2025-06-19 18:10 | Emergency (ER) | payer MEDICAID, SELFPAY ==
--- OUTSIDE RECORDS SUMMARY | 2025-06-19 18:13 | XMS_ITS | Encounter Summary ---
Author Organization [place] Address [address] [place] [address] Care Team Providers Care Low Altitude Air Defense Officer Name Role Phone Oliva Boyce MD Primary Care Provider [phone] Evin Tavarez MD Primary Care Provider [phone] Oliva Boyce MD Primary Care Provider [phone] Tracee Omalley APRN BUS BOY Unavailable Oliva Boyce MD Unavailable [phone] Oliva Boyce MD Unavailable [phone] Oanh Castorena MD Unavailable + Oliva Boyce MD Unavailable [phone] Arthur Alejo MD Primary Care Provider [phone] Reason for Visit * Reason Onset Date Comments Forms 11/29/2014 medical records Encounter Details Date Type Department Care Team (Late st Contact Info) Description 11/29/[address] [facility] [address] 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 Not on file Not on file documented as of this encounter Plan of Treatment Not on file documented as of this encounter Visit Diagnoses Not on filedocumented in this encounter Additional Health Concerns Infection Onset Date Last Indicated Resolved Time Rule Out COVID-19 03/28/2024 03/28/2024 03/28/2024 5:46 PM CDT documented as of this encounter Care Teams Low Altitude Air Defense Officer Relationship Specialty Start Date End Date Oliva Boyce MD [address] [place] [address] [place] [address] PCP - General Internal Medicine 09/20/13 11/06/15 Evin Tavarez MD [address] [place] [address] [place] [address] PCP - General Internal Medicine 11/07/15 11/25/15 Oliva Boyce MD [address] [place] [address] [place] [address] PCP - General Internal Medicine 11/26/15 03/27/24 Tracee Omalley APRN BUS BOY [address] [place] [address] [place] [address] PCP - Assigned PCP 01/23/18 08/13/18 Oliva Boyce MD [address] [place] [address] [place] [address] PCP - Assigned PCP 08/14/18 09/27/18 Arthur Alejo MD [facility] [address] [place] [address] PCP - General Family Medicine 03/28/24 Oliva Boyce MD [address] [facility] [place] [address] Assigned PCP 08/14/18 12/17/18 Oanh Castorena MD [facility] [address] [place] [address] Assigned PCP 12/18/18 07/29/19 [place] [address] [place] [address] [place] [address] Assigned PCP 07/30/19 01/20/20 documented as of this encounter
--- OUTSIDE RECORDS SUMMARY | 2025-06-19 18:13 | XMS_ITS | Encounter Summary ---
Author Organization [place] Address [address] [place] [address] Care Team Providers Care Fish Icer Name Role Phone Oliva Boyce MD Primary Care Provider [phone] Evin Tavarez MD Primary Care Provider [phone] Oliva Boyce MD Primary Care Provider [phone] Tracee Omalley APRN ASSISTANT SUPERINTENDENT Unavailable Oliva Boyce MD Unavailable [phone] Oliva Boyce MD Unavailable [phone] Oanh Castorena MD Unavailable + Oliva Boyce MD Unavailable [phone] Arthur Alejo MD Primary Care Provider [phone] Encounter Details Date Type Department Care Team (Late st Contact Info) Description 09/28/[address] 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 Not on file Not on file documented as of this encounter Plan of Treatment Not on file documented as of this encounter Visit Diagnoses Not on filedocumented in this encounter Additional Health Concerns Infection Onset Date Last Indicated Resolved Time Rule Out COVID-19 03/28/2024 03/28/2024 03/28/2024 5:46 PM CDT documented as of this encounter Care Teams Fish Icer Relationship Specialty Start Date End Date Oliva Boyce MD [address] [place] [address] [place] [address] PCP - General Internal Medicine 09/20/13 11/06/15 Evin Tavarez MD [address] [place] [address] [place] [address] PCP - General Internal Medicine 11/07/15 11/25/15 Oilva Boyce MD [address] [place] [address] [place] [address] PCP - General Internal Medicine 11/26/15 03/27/24 Tracee Omalley APRN ASSISTANT SUPERINTENDENT [address] [place] [address] [place] [address] PCP - Assigned PCP 01/23/18 08/13/18 Oliva Boyce MD [address] [place] [address] [place] [address] PCP - Assigned PCP 08/14/18 09/27/18 Arthur Alejo MD [place] [id number] [place] [address] PCP - General Family Medicine 03/28/24 Oliva Boyce MD [address] [facility] [place] [address] Assigned PCP 08/14/18 12/17/18 Oanh Castorena MD [facility] [address] [place], [place] [address] [address] Assigned PCP 12/18/18 07/29/19 Oliva Boyce MD [address] [facility] [place] [address] Assigned PCP 07/30/19 01/20/20 documented as of this encounter
--- OUTSIDE RECORDS SUMMARY | 2025-06-19 18:13 | XMS_ITS | Encounter Summary ---
Author Organization [place] Address [address] [place] [address] Care Team Providers Care Ore Washer Name Role Phone Oliva Boyce MD Primary Care Provider [phone] Evin Tavarez MD Primary Care Provider +[phone] Oliva Boyce MD Primary Care Provider [phone] Tracee Omalley APRN CRIMINAL RESEARCH SPECIALIST Unavailable Oliva Boyce MD Unavailable [phone] Oliva Boyce MD Unavailable +[phone] Oanh Castorena MD Unavailable + Oliva Boyce MD Unavailable [phone] Arthur Aeljo MD Primary Care Provider +[phone] Encounter Details Date Type Department Care Team (Late st Contact Info) Description 09/24/2014 MyC Medical Advice [facility] [address] [place] [address] Scarlett Nunn, PROCEDURAL NURSE CRIMINAL RESEARCH SPECIALIST [address] [place] [address] Social History Tobacco Use Types Packs/Day Years Used Date Smoking Tobacco: Some Days Cigarettes 0.5 10 Smokeless Tobacco: Never Alcohol Use Standard Drinks/Week Comments No 0 (1 standard drink = 0.6 oz pur e alcohol) Comments No Sex and Gender Information Value Date Recorded Sex Assigned at Not on file Legal Sex Female 3:36 AM SPINNING AND WINDING SUPERVISOR Gender Identity Not on file Sexual [...] documented as of this encounter Care Teams Ore Washer Relationship Specialty Start Date End Date Oliva Boyce MD [address] [place] [address] [place] [address] PCP - General Internal Medicine 09/20/13 11/06/15 Evin Tavarez MD [address] [place] [address] [place] [address] PCP - General Internal Medicine 11/07/15 11/25/15 Oliva Boyce MD [address] [place] [address] [place] [address] PCP - General Internal Medicine 11/26/15 03/27/24 Tracee Omalley APRN CRIMINAL RESEARCH SPECIALIST [address] [place] [address] [place] [address] PCP - Assigned PCP 01/23/18 08/13/18 Oliva Boyce MD [address] [place] [address] [place] [address] PCP - Assigned PCP 08/14/18 09/27/18 Arthur Alejo MD [place] [id number] [place] [address] PCP - General Family Medicine 03/28/24 Oliva Boyce MD [address] [facility] [place] [address] Assigned PCP 08/14/18 12/17/18 Oanh Castorena MD [place] [address] [place], [place] [address] [address] Assigned PCP 12/18/18 07/29/19 Oliva Boyce MD [address] [facility] [place] [address] Assigned PCP 07/30/19 01/20/20 documented as of this encounter
--- OUTSIDE RECORDS SUMMARY | 2025-06-19 18:13 | XMS_ITS | Encounter Summary ---
Author Organization [place] Address [address] [place] [address] Care Team Providers Care Leaflet Or Newspaper Deliverer Name Role Phone Oliva Boyce MD Primary Care Provider [phone] Evin Tavarez MD Primary Care Provider [phone] Oliva Boyce MD Primary Care Provider [phone] Tracee Omalley APRN [facility] Unavailable Oliva Boyce MD Unavailable +[phone] Oliva Boyce MD Unavailable [phone] Oanh Castorena MD Unavailable + Oliva Boyce MD Unavailable [phone] Arthur Alejo MD Primary Care Provider +[phone] Encounter Details Date Type Department Care Team (Late st Contact Info) Description 09/30/2015 MyC Medical Advice [address] [place] [address] Chani Mayfield MA Social History Tobacco Use Types Packs/Day Years Used Date Smoking Tobacco: Some Days Cigarettes 0.5 10 Smokeless Tobacco: Never Alcohol Use Standard Drinks/Week Comments No 0 (1 standard drink = 0.6 oz pur e alcohol) Comments No Sex and Gender Information Value Date Recorded Sex Assigned at Not on file Legal Sex Female 3:36 AM APPLIANCE 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 Gender Identity Not on file Sexual Orientation Not on file 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 Not on [...] documented as of this encounter Care Teams Leaflet Or Newspaper Deliverer Relationship Specialty Start Date End Date Oliva Boyce MD [address] [place] [address] [place] [address] PCP - General Internal Medicine 09/20/13 11/06/15 Evin Tavarez MD [address] [place] [address] [place] [address] PCP - General Internal Medicine 11/07/15 11/25/15 Oliva Boyce MD [address] [place] [address] [place] [address] PCP - General Internal Medicine 11/26/15 03/27/24 Tracee Omalley APRN NAIL KEGGER [address] [place] [address] [place] [address] PCP - Assigned PCP 01/23/18 08/13/18 Oliva Boyce MD [address] [place] [address] [place] [address] PCP - Assigned PCP 08/14/18 09/27/18 Arthur Alejo MD [facility] [address], [place] [address] PCP - General Family Medicine 03/28/24 Oliva Boyce MD [address] [facility] [place] [address] Assigned PCP 08/14/18 12/17/18 Oanh Castorena MD [place] [address] [facility] [place]W [address] Assigned PCP 12/18/18 07/29/19 Oliva Boyce MD [address] [facility] [place] [address] Assigned PCP 07/30/19 01/20/20 documented as of this encounter
--- OUTSIDE RECORDS SUMMARY | 2025-06-19 18:13 | XMS_ITS | Encounter Summary ---
Author Organization [place] Address [address] [place] [address] Care Team Providers Care Trailer Rental Clerk Name Role Phone Oliva Boyce MD Primary Care Provider [phone] Evin Tavarez MD Primary Care Provider [phone] Oliva Boyce MD Primary Care Provider +[phone] Tracee Omalley APRN MOLD CLOSER HELPER Unavailable Oliva Boyce MD Unavailable [phone] Oliva Boyce MD Unavailable [phone] Oanh Castorena MD Unavailable + Oliva Boyce MD Unavailable +[phone] rAthur Alejo MD Primary Care Provider +[phone] Reason for Visit * Reason Onset Date Comments Medication Request 03/08/2015 something for anxiety Encounter Details Date Type Department Care Team (Late st Contact Info) Description 03/08/2015 MyC Medical Advice [facility] [address] 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 Not [...] documented as of this encounter Care Teams Trailer Rental Clerk Relationship Specialty Start Date End Date Oliva Boyce MD [address] [place] [address] [place] [address] PCP - General Internal Medicine 09/20/13 11/06/15 Evin Tavarez MD [address] [place] [place] [address] [place] [address] PCP - General Internal Medicine 11/07/15 11/25/15 Oliva Boyce MD [address] [place] [place] [address] [place] [address] PCP - General Internal Medicine 11/26/15 03/27/24 Tracee Omalley APRN MOLD CLOSER HELPER [address] [place] [place] [address] [place] [address] PCP - Assigned PCP 01/23/18 08/13/18 [place] [address] [place] [address] [place] [address] PCP - Assigned PCP 08/14/18 09/27/18 Arthur Alejo MD [address] [address] PCP - General Family Medicine 03/28/24 [place] [address] [place] [address] [place] [address] Assigned PCP 08/14/18 12/17/18 Oanh Castorena MD [facility] [address] [place] [address] [place] [address] Assigned PCP 12/18/18 07/29/19 Oliva Boyce MD [address] [facility] [place] [address] Assigned PCP 07/30/19 01/20/20 documented as of this encounter
--- OUTSIDE RECORDS SUMMARY | 2025-06-19 18:13 | XMS_ITS | Encounter Summary ---
Author Organization [place] Address [address] [place] [address] Care Team Providers Care Custom Motorcycle Painter Name Role Phone Oliva Boyce MD Primary Care Provider [phone] Evin Tavarez MD Primary Care Provider [phone] Oliva Boyce MD Primary Care Provider [phone] Tracee Omalley APRN HEALTHCARE NETWORK CONSULTANT Unavailable Oliva Boyce MD Unavailable [phone] Oliva Boyce MD Unavailable [phone] Oanh Castorena MD Unavailable + Oliva Boyce MD Unavailable [phone] Arthur Alejo MD Primary Care Provider [phone] Encounter Details Date Type Department Care Team (Late st Contact Info) Description 06/19/2014 MyC Medical Advice [facility] [address] [place] [address] Marilia Kent, RN Social History Tobacco Use Types Packs/Day Years Used Date Smoking Tobacco: Some Days Cigarettes 0.5 10 Smokeless Tobacco: Never Alcohol Use Standard Drinks/Week Comments No 0 (1 standard drink = 0.6 oz pur e alcohol) Comments No Sex and Gender Information Value Date Recorded Sex Assigned at Not on file Legal Sex Female 3:36 AM INSURANCE SERVICE REPRESENTATIVE Gender Identity Not on file Sexual Orientation Not on file 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 Not on file Not on file documented as of this encounter Plan of Treatment Not on file documented as of this encounter Visit Diagnoses Not on filedocumented in this encounter Additional Health Concerns Infection Onset Date Last Indicated Resolved Time Rule Out COVID-19 03/28/2024 03/28/2024 03/28/2024 5:46 PM CDT documented as of this encounter Care Teams Custom Motorcycle Painter Relationship Specialty Start Date End Date Oliva Boyce MD [address] [place] [address] [place] [address] PCP - General Internal Medicine 09/20/13 11/06/15 Evin Tavarez MD [address] [place] [address] [place] [address] PCP - General Internal Medicine 11/07/15 11/25/15 Oliva Boyce MD [address] [place] [address] [place] H[place] [address] PCP - General Internal Medicine 11/26/15 03/27/24 Tracee Omalley APRN HEALTHCARE NETWORK CONSULTANT [address] [place] [address] [place] [address] PCP - Assigned PCP 01/23/18 08/13/18 Oliva Boyce MD [address] [place] [address] [place] [address] PCP - Assigned PCP 08/14/18 09/27/[address] [facility] [address] [place] [address] PCP - General Family Medicine 03/28/24 Oliva Boy[address] MD [address] [facility] [place] [address] Assigned PCP 08/14/18 12/17/18 Oanh Castorena MD [place] [address] [place] [address] [place] [address] Assigned PCP 12/18/18 07/29/19 Oliva Boyce MD [address] [facility] [place] [address] Assigned PCP 07/30/19 01/20/20 documented as of this encounter
--- OUTSIDE RECORDS SUMMARY | 2025-06-19 18:13 | XMS_ITS | Encounter Summary ---
Author Organization [place] Address [address] [place] [address] Care Team Providers Care Recording Studio Setup Worker Name Role Phone Joel Landry MD Primary Care Provider [phone] Oliva Boyce MD Primary Care Provider [phone] Evin Tavarez MD Primary Care Provider [phone] Oliva Boyce MD Primary Care Provider [phone] Tracee Omalley APRN BLACK LEATHER BUFFER Unavailable Oliva Boyce MD Unavailable [phone] Oliva Boyce MD Unavailable [phone] Oanh Castorena MD Unavailable + Oliva Boyce MD Unavailable [phone] Arthur Alejo MD Primary Care Provider [phone] Encounter Details Date Type Department Care Team (Late st Contact Info) Description 09/04/2012 [facility] [place] [facility] [address] [place] [address] Joel Landry MD [address] [place] [address] 100 131 160 [place] [address] Social History Tobacco Use Types Packs/Day Years Used Date Smoking Tobacco: Former Cigarettes 0.5 10 Smokeless Tobacco: Never Alcohol Use Standard Drinks/Week Comments No 0 (1 standard drink = 0.6 oz pur e alcohol) Comments No Sex and Gender Information Value Date Recorded Sex Assigned at Not on file 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 Gender Identity Not on file Sexual Orientation Not on file documented as of this encounter Plan of Treatment Not on file documented as of this encounter Visit Diagnoses Not on filedocumented in this encounter Additional Health Concerns Infection Onset Date Last Indicated Resolved Time Rule Out COVID-19 03/28/2024 03/28/2024 03/28/2024 5:46 PM CDT documented as of this encounter Care Teams Recording Studio Setup Worker Relationship Specialty Start Date End Date Joel Landry MD [address] [facility] [address] [place] [address] PCP - General time clock repairer 05/02/11 09/19/13 Oliva Boyce MD [address] [place] [address] [place] [address] PCP - General Internal Medicine 09/20/13 11/06/15 Evin Tavarez MD [address] [place] [address] [place] [address] PCP - General Internal Medicine 11/07/15 11/25/15 Oliva Boyce MD [address] [place] [address] [place] [address] PCP - General Internal Medicine 11/26/15 03/27/24 Tracee Omalley APRN BLACK LEATHER BUFFER [address] [place] [address] [place] [address] PCP - Assigned PCP 01/23/18 08/13/18 Oliva Boyce MD [address] [place] [address] [place] [address] PCP - Assigned PCP 08/14/18 09/27/18 Arthur Alejo MD [facility] [address] [place] [address] PCP - General Family Medicine 03/28/24 Oliva Boyce MD [address] [facility] [place] [address] Assigned PCP 08/14/18 12/17/18 Oanh Castorena MD [place] [address] [place] [address] [place] [address] Assigned PCP 12/18/18 07/29/19 Oliva Boyce MD [address] [facility] [place] [address] Assigned PCP 07/30/19 01/20/20 documented as of this encounter
--- OUTSIDE RECORDS SUMMARY | 2025-06-19 18:13 | XMS_ITS | Encounter Summary ---
Author Organization [place] Address [address] [place] [address] Care Team Providers Care Regrind Mill Operator Name Role Phone Evin Tavarez MD Primary Care Provider [phone] Oliva Boyce MD Primary Care Provider [phone] Tracee Omalley APRN [facility] Unavailable Oliva Boyce MD Unavailable [phone] Oliva Boyce MD Unavailable [phone] Oanh Castorena MD Unavailable + Oliva Boyce MD Unavailable [phone] Arthur Alejo MD Primary Care Provider [phone] Encounter Details Date Type Department Care Team (Late st Contact Info) Description 11/07/2015 [facility] [place] Medical Advice [address] [place] [address] Charo Esqueda Social History Tobacco Use Types Packs/Day Years Used Date Smoking Tobacco: Some Days Cigarettes 0.5 10 Smokeless Tobacco: Never Alcohol Use Standard Drinks/Week Comments No 0 (1 standard drink = 0.6 oz pur e alcohol) Comments No Sex and Gender Information Value Date Recorded Sex Assigned at Not on file Legal Sex Female 3:36 AM MEDIA RELATIONS MANAGER Gender Identity Not on file Sexual Orientation Not on file 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 Not [...] documented as of this encounter Care Teams Regrind Mill Operator Relationship Specialty Start Date End Date Evin Tavarez MD PCP - General Internal Medicine 11/07/15 11/25/15 Oliva Boyce MD [address] [place] [address] [place] [address] PCP - General Internal Medicine 11/26/15 03/27/24 Tracee Omalley APRN HUMAN RESOURCES GENERALIST [address] [place] [address] [place] [address] PCP - Assigned PCP 01/23/18 08/13/18 Oliva Boyce MD [address] [place] [address] [place] [address] PCP - Assigned PCP 08/14/18 09/27/18 Arthur Alejo MD [facility] [address], [place] [address] PCP - General Family Medicine 03/28/24 Oliva Boyce MD [address] [place] [address] [place] [address] Assigned PCP 08/14/18 12/17/18 Oanh Castorena MD [place] [address] [facility] 207 [place] [address] Assigned PCP 12/18/18 07/29/19 Oliva Boyce MD [address] [facility] [place] [address] Assigned PCP 07/30/19 01/20/20 documented as of this encounter
--- OUTSIDE RECORDS SUMMARY | 2025-06-19 18:13 | XMS_ITS | Encounter Summary ---
Author Organization [place] Address [address] [place] [address] Care Team Providers Care Supreme Court Justice Name Role Phone Joel Landry MD Primary Care Provider [phone] Oliva Boyce MD Primary Care Provider +[phone] Evin Tavarez MD Primary Care Provider [phone] Oliva Boyce MD Primary Care Provider [phone] Tracee Omalley APRN WAREHOUSEMAN Unavailable Oliva Boyce MD Unavailable [phone] Oliva Boyce MD Unavailable +[phone] Oanh Castorena MD Unavailable + Oliva Boyce MD Unavailable [phone] Arthur Alejo MD Primary Care Provider [phone] Encounter Details Date Type Department Care Team (Late st Contact Info) Description 10/03/2012 MyC Medical Advice [facility] [address] [place] [address] Joel Landry MD [address] [place] [address] 100 131 160 [place] [address] Social History Tobacco Use Types Packs/Day Years Used Date Smoking Tobacco: Former Cigarettes 0.5 10 Smokeless Tobacco: Never Alcohol Use Standard Drinks/Week Comments No 0 (1 standard drink = 0.6 oz pur e alcohol) Comments No Sex and Gender Information Value Date Recorded Sex Assigned at Not on file Legal Sex Female 3:36 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 CAN ROUTER Gender Identity Not on file Sexual Orientation Not on file documented as of this encounter Plan of Treatment Not on file documented as of this encounter Visit Diagnoses Not on filedocumented in this encounter Additional Health Concerns Infection Onset Date Last Indicated Resolved Time Rule Out COVID-19 03/28/2024 03/28/2024 03/28/2024 5:46 PM CDT documented as of this encounter Care Teams Supreme Court Justice Relationship Specialty Start Date End Date Joel Landry MD [address] [facility] 100 131 160 [place] [address] PCP - General medical lab technician 05/02/11 09/19/13 Oliva Boyce MD [address] [place] [address] [place] [address] PCP - General Internal Medicine 09/20/13 11/06/15 Evin Tavarez MD [address] [place] [address] [place] H[place] [address] PCP - General Internal Medicine 11/07/15 11/25/15 Oliva Boyce MD [address] [place] [address] [place] HULL [address]97 PCP - General Internal Medicine 11/26/15 03/27/24 Tracee Omalley APRN WAREHOUSEMAN [address] [place] [address] [place] H[place] [address] PCP - Assigned PCP 01/23/18 08/13/18 Oliva Boyce MD [address] [place] [address] [place] H[place] [address] PCP - Assigned PCP 08/14/18 09/27/18 Arthur Alejo MD [facility] [address] [place] [address] PCP - General Family Medicine 03/28/24 Oliva Boyce MD 3305 [facility] [place] [address] Assigned PCP 08/14/18 12/17/18 Oanh Castorena MD [place] [address] [address] Assigned PCP 12/18/18 07/29/19 [place] [address] [place] [address] [place] [address] Assigned PCP 07/30/19 01/20/20 documented as of this encounter
--- OUTSIDE RECORDS SUMMARY | 2025-06-19 18:13 | XMS_ITS | Encounter Summary ---
Author Organization [place] Address [address] [place] [address] Care Team Providers Care Pv Design Engineer Name Role Phone Oliva Boyce MD Primary Care Provider [phone] Evin Tavarez MD Primary Care Provider [phone] Oliva Boyce MD Primary Care Provider [phone] Tracee Omalley APRN REFRACTORY SPECIALIST Unavailable Oliva Boyce MD Unavailable +[phone] Oliva Boyce MD Unavailable [phone] Oanh Castorena MD Unavailable + Oliva Boyce MD Unavailable [phone] Arthur Alejo MD Primary Care Provider [phone] Encounter Details Date Type Department Care Team (Late st Contact Info) Description 09/04/2015 My[facility] Medical Advice [address] [place] [address] Magdalena Levi, RRT Social History Tobacco Use Types Packs/Day Years Used Date Smoking Tobacco: Some Days Cigarettes 0.5 10 Smokeless Tobacco: Never Alcohol Use Standard Drinks/Week Comments No 0 (1 standard drink = 0.6 oz pur e alcohol) Comments No Sex and Gender Information Value Date Recorded Sex Assigned at Not on file Legal Sex Female 3:36 AM RAILROAD BAGGAGE PORTER Gender Identity Not on file Sexual Orientation Not on file 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 Not on [...] documented as of this encounter Care Teams Pv Design Engineer Relationship Specialty Start Date End Date Oliva Boyce MD [address] [place] [address] [place] [address] PCP - General Internal Medicine 09/20/13 11/06/15 Evin Tavarez MD [address] [place] [address] [place] HULL [address] PCP - General Internal Medicine 11/07/15 11/25/15 Oliva Boyce MD [address] [place] [address] [place] H[place] [address] PCP - General Internal Medicine 11/26/15 03/27/24 Tracee Omalley APRN CNP [address] [place] [address] [place] H[place] [address] PCP - Assigned PCP 01/23/18 08/13/18 Oliva Boyce MD [address] [place] [address] [place] H[place] [address] PCP - Assigned PCP 08/14/18 09/27/18 Arthur Alejo MD [place] [address] [place] [address] PCP - General Family Medicine 03/28/24 Oliva Boyce MD [address] [facility] [place] [address] Assigned PCP 08/14/18 12/17/18 Oanh Castorena MD [place] [address] [place] [address] [place]IR[place] BRAND [address] Assigned PCP 12/18/18 07/29/19 lOiva Boyce MD [address] [facility] [place] [address] Assigned PCP 07/30/19 01/20/20 documented as of this encounter
--- OUTSIDE RECORDS SUMMARY | 2025-06-19 18:13 | XMS_ITS | Clinical Summary ---
Author Organization [facility] Address [address] [place] [id number] Care Team Providers Care Floor Mechanic Name Role Phone Arthur Alejo MD Primary Care Provider [phone] Allergies Active Allergy Reactions Criticality Noted Date [...] each (20 mcg) by Intrauterine route continuous USG=[id number] Active FETZIMA 40 MG 24 hr capsuleIndicatio ns:Mood disorder Take 2 capsules (80 mg) by mouth [...] breath, wheezing or cough. 18 g 4 Active Active Problems Problem Noted Date Diagnosed [...] 6 months 10/05 Pap Ascus +HPV 58, [place] ALVAREZ I-II 11/05 LEEP ALVAREZ I-II, + margins, in reminders for colp in 4-6 months per ASCCP guidelines 01/01/14 Dx pap NIL. HPV Neg. [place] ALVAREZ I. Plan: [place] in 6 months 08/2014: NIL pap, neg HPV. [place] - no dysplasia. Plan cotest in 1 yr. Tracking started. 01/05/17 NIL, Neg HPV. Plan 1 yr co-test per visit notes 08/29/18 Patient is lost to pap tracking follow-up. Cystic acne 02/21/2010 CARDIOVASCULAR SCREENING; LDL GOAL LESS THAN 160 09/04/2009 Panic disorder 08/28/2008 Overview (08/28/2008): Suicide attempt in 2004. 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 Not on file Not on file Last Filed Vital Signs Vital Sign Reading Time Taken Comments Blood Pressure 136/86 03/28/2024 11:53 AM CDT Pulse 101 03/28/2024 11:53 AM CDT Temperature 36.7 C (98.1 F) 03/28/2024 11:53 AM CDT Respiratory Rate 18 03/28/2024 11:5 3 AM CDT Oxygen Saturation 100% 03/28/2024 11: 53 AM CDT Inhaled Oxygen Concentration - - Weight 58.9 kg (129 lb 12.8 oz) 018 12:46 PM [facility] Height 170.2 cm (5' 7) 08/12/2017 12:4 6 PM [facility] Body Mass Index 20.33 08/12/2017 12:46 PM [facility] Plan of Treatment Health Maintenance Due Date Last Done Comments ADVANCE CARE PLANNING 1984 ANNUAL REVIEW OF HM ORDERS 1984 MAMMO SCREENING 1984 YEARLY PREVENTIVE VISIT 10/23/1987 HEPATITIS A VACCINE (1 of 2 - Risk 2-dose series) 10/23/2003 HEPATITIS B VACCINE (1 of 3 - 19+ 3-dose series) 10/23/2003 PNEUMOCOCCAL VACCINE: PEDIATRICS (0 to 5 YEARS) AND AT-RISK PATIENTS (6 to 49 YEARS) (2 of 2 - PCV) 06/28/2012 06/28/2011 HPV TEST 01/05/2018 01/05/2017 PAP 01/05/2018 01/05/2017, 08/26, 09/04/2014, Additional history exists PHQ-9 02/09/2018 08/12/2017, 01/24, 01/05/2017, Additional history exists DIABETES SCREENING 07/30/2020 07/30/2017, 0 07/27/2017, 01/20/2017, Additional history exists LIPID 2024 09/20/2013 COVID-19 VACCINE ( season) 2025 05/05/2021 INFLUENZA VACCINE (#1) 2025 1, 06/09/2016, 08/01/2014, Additional history exists DTAP/TDAP/TD VACCINE (3 - Td or Tdap) 09/28/2028 09/28/2018, 06/28/2011 ZOSTER VACCINE (1 of 2) 2034 HEPATITIS C SCREENING Completed 10/11/2012 HIV SCREENING Completed 08/20/2015, 09/23, 01/20/2011, Additional history exists DEPRESSION ACTION PLAN Completed 6, 04/08/2015, 10/25/2013 HPV VACCINE (No Doses Required) Completed MENINGITIS VACCINE Aged Out No longer eligible based on patient's age to complete this topic Procedures Procedure Name Priority Date/Time Associated Diagnosis Comments COMPREHENSIVE METABOLIC PANEL STAT 07/30/2017 10:12 PM [facility] PAP IMAGED THIN LAYER SCREEN Routine 01/05/2017 3:08 PM CDT Encounter for gynecological examination without abnormal finding HPV HIGH RISK TYPES DNA CERVICAL Routine 01/05/2017 3:05 PM CDT Encounter for gynecological examination without abnormal finding HIV ANTIGEN ANTIBODY COMBO Routine 08/20/2015 4:34 PM [facility] Screening for HIV (human immunodeficiency virus) LIPID REFLEX TO DIRECT LDL PANEL Routine 09/20/2013 11:21 AM [facility] CARDIOVASCULAR SCREENING; LDL GOAL LESS THAN 160 HEPATITIS C ANTIBODY Routine 10/11/2012 3:09 PM CDT STD (female) from Last 3 Months or Most Recently Relevant to Health Maintenance Results * (ABNORMAL) Comprehensive metabolic panel (07/30/2017 10:12 PM [facility]) Sodium 142 133 - 144 mmol/L 07/30/2017 10:54 PM [facility] Potassium 4.2 3.4 - 5.3 mmol/L 07/30/2017 10:[address] [facility] Chloride 110(H) 94 - 109 mmol/L 07/30/2017 10:[address] [facility] Carbon Dioxide 23 20 - 32 mmol/L 07/30/2017 10:[address] [facility] Anion Gap 9 3 - 14 mmol/L 07/30/2017 10:[address] [facility] Glucose 83 70 - 99 mg/dL 07/30/2017 10:[address] [facility] Urea Nitrogen 9 7 - 30 mg/dL 07/30/2017 10:[address] [facility] Creatinine 0.85 0.52 - 1.04 mg/dL 07/30/2017 10:[address] [facility] GFR Estimate 77 >60 mL/min/1.7 m2 07/30/2017 10:[address] [facility] Comment:Non GFR Calc GFR Estimate If Black >90 >60 mL/min/1.7 m2 07/30/2017 10:[address] [facility] Comment: GFR Calc Calcium 8.3(L) 8.5 - 10.1 mg/dL 07/30/2017 10:[address] [facility] Bilirubin Total 0.5 0.2 - 1.3 mg/dL 07/30/2017 10:[address] [facility] Albumin 3.8 3.4 - 5.0 g/dL 07/30/2017 10:[address] [facility] Protein Total 7.5 6.8 - 8.8 g/dL 07/30/2017 10:[address] [facility] Alkaline Phosphatase 53 40 - 150 U/L 07/30/2017 10:[address] [facility] ALT 18 0 - 50 U/L 07/30/2017 10:[address] [facility] AST 18 0 - 45 U/L 07/30/2017 10:[address] [facility] Blood specimen (specimen) 07/30/2017 10:12 PM [facility] 07/30/2017 10:31 PM [facility] us Judi Garner MD LAB - BLOOD ORDERABLE S Final Result [facility] [address] [place] [address], [facility] [phone] * Pap imaged thin layer screen with HPV - recommended age 30 - 65 years (select HPV order below) (01/05/2017 3:08 PM CDT) PAP JOHANN Goodwin Report Patient Name: ALANA RAINES MR#: [id number] Specimen #: [id number] Collected: 01/05/2017 Received: 01/06/2017 Reported: 01/07/2017 15:24 Ordering Phy(s): SANDRA CASTORENA For improved result formatting, select 'View Enhanced Report Format' under Linked Documents section. SPECIMEN/STAIN PROCESS: Pap imaged thin layer prep screening (Surepath, FocalPoint with guided screening) Pap-Cyto x 1, HPV ordered x 1 SOURCE: Cervical, endocervical Pap imaged thin layer prep screening (Surepath, FocalPoint with guided screening) SPECIMEN ADEQUACY: Satisfactory for evaluation. -Transformation zone component present. CYTOLOGIC INTERPRETATION: Negative for intraepithelial lesion or malignancy Electronically signed out by: ANIL Barnard (ASCP) Processed and screened at [facility] CLINICAL HISTORY: Currently not having periods, Intra-Uterine Device, Previous normal pap Date of Last Pap: 09/04/2014, Papanicolaou Test Limitations: Cervical cytology is a screening test with limited sensitivity; regular screening is critical for cancer prevention; Pap tests are primarily effective for the diagnosis/preventi on of squamous cell carcinoma, not adenocarcinomas or other cancers. TESTING LAB LOCATION: [address] [address] COLLECTION SITE: Client: [facility] Location: NICOLE (R) DEANNA Cytologic material (specimen) 01/05/2017 3:08 PM CDT 01/06/2017 11:32 AM CDT us Sandra Castorena MD LAB - OPTIME CLINI SH[facility] SPECIMEN Final Result [facility] * HPV High Risk Types DNA Cervical (01/05/2017 3:05 PM CDT) HPV 16 DNA Negative [facility] HPV 18 DNA Negative [facility] Other HR HPV Negative [facility] Final Diagnosis This patient's sample is negative for HPV DNA. (Note) METHODOLOGY: The Laura saeed [id number] system uses automated extraction, simultaneous amplification of HPV (L1 region) and beta-globin, followed by real time detection of fluorescent labeled HPV and beta globin using specific oligonucleotide probes . The test specifically identifies types HPV 16 DNA and HPV 18 DNA while concurrently detecting the rest of the high risk types (31, 33, 35, 39, 45, 51, 52, 56, 58, 59, 66 or 68). COMMENTS: This test is not intended for use as a screening device for women under age 30 with normal cervical cytology. Results should be correlated with cytologic and histologic findings. Close clinical followup is recommended. This test was developed and its performance characteristics determined by the [facility], [facility]. It has not been cleared or approved by the FDA. The laboratory is regulated under CLIA as qualified to perform high-complexity testing. This test is used for clinical purposes. It should not be regarded as investigational or for research. [facility] Specimen Description Cervical Cells [facility] [address] [facility] Cervical Cells 01/05/2017 3: 05 PM CDT 01/05/2017 3:19 PM CDT us Sandra Castorena MD LAB - BLOOD ORDERA BLES Final Result [facility] [address] [place] [address] * HIV Antigen Antibody Combo (08/20/2015 4:34 PM [facility]) HIV Antigen Antibody Combo Nonreactive HIV-1 p24 Ag & HIV-1/HIV-2 Ab Not Detected NR [facility] Blood specimen (specimen) 08/20/2015 4:34 PM [facility] 08/20/2015 4:35 PM [facility] Tanvi Akins MD LAB - BLOOD ORDERABLES Final R esult [facility] [address] [place] [address] * (ABNORMAL) Lipid Profile with reflex to direct LDL (09/20/2013 11:21 AM [facility]) Cholesterol 160 <200 mg/dL [facility] Comment: LDL Cholesterol is the primary guide to therapy. The NCEP recommends further evaluation of: patients with cholesterol greater than 200 mg/dL if additional risk factors are present, cholesterol greater than 240 mg/dL, triglycerides greater than 150 mg/dL, or HDL less than 40 mg/dL. Triglycerides 156(H) 0 - 150 mg/dL [facility] HDL Cholesterol 46(L) >50 mg/dL [facility] LDL Cholesterol Calculated 83 0 - 129 mg/dL [facility] Comment: LDL Cholesterol is the primary guide to therapy: LDL-cholesterol goal in high risk patients is <100 mg/dL and in very high risk patients is <70 mg/dL. VLDL-Cholesterol 31(H) 0 - 30 mg/dL [facility] Cholesterol/HDL Ratio 3.5 0.0 - 5.0 [facility] Blood specimen (specimen) 09/20/2013 11:21 AM [facility] 09/20/2013 11:26 AM [facility] Oliva Boyce MD LAB - BLOOD ORDERABLES Fi nal Result Performing Organization Address City/[facility]/ZIP Co de Phone Number [facility] [address] [place], [place] [phone] * Hepatitis C antibody (10/11/2012 3:09 PM CDT) Hepatitis C Antibody Negative [facility]G [facility] Blood specimen (specimen) 10/11/2012 3:09 PM CDT 10/11/2012 3:10 PM CDT Joel Landry MD LAB - BLOOD ORDERABLES Final Re sult [id number] [place] [address] from Last 3 Months or Most Recently Relevant to Health Maintenance Insurance [facility] Advance Directives For more information, please contact: [phone] * Full Code (Latest Code Status on File) Date Activated Date Inactivated Comments 07/26/2017 8:34 PM 07/28/2017 2:00 PM Care Teams Floor Mechanic Relationship Specialty Start Date End Date Arthur Alejo MD [facility] [address], [place] [address] PCP - General Family Medicine 03/28/24
[2025-06-19 18:30] VITALS: BP 113/78; PULSE 88; RESP 16; TEMP 36.4; O2SAT 99; BMI 22.7
--- NOTE | 2025-06-19 20:39 | ED.ABDPAIN ---
HPI - Abdominal Pain General Chief Complaint: Abdominal Pain Stated Complaint: abd. pain, diarrhea Time Seen by Provider: 06/19/25 18:27 History of Present Illness HPI narrative: This 39-year-old female comes in reporting crampy abdominal pain over the past few hours. She states that she has not had a bowel movement for the past couple days. She has had some nausea and vomiting. She does not report any prior history of abdominal surgery or obstruction. She states that the pain is gone at times and then can become very intense for a short time. She did attempt to take magnesium citrate at home but did not tolerate this and had nausea with vomiting. She does not report any fever or dysuria symptoms. Prior to this she was in good health. Related Data Home Medications ?Medication ?Instructions ?Recorded ?Confirmed levonorgestrel (Mirena) 1 device intrauterine ONCE 02/03/22 10/25/24 valacyclovir 500 mg tablet 500 mg PO BID PRN 10/25/24 06/19/25 Previous Rx's ?Medication ?Instructions ?Recorded ondansetron 4 mg disintegrating 4 mg PO Q8H PRN nausea and 06/30/23 tablet vomiting 4 days #7 tabs varenicline tartrate 0.5 mg (11)-1 See Rx Instructions PO PER PKG DIR 09/01/24 mg (42) tablets in a dose pack #53 ea (Chantix Starting Month Box) lamotrigine 150 mg tablet 150 mg PO DAILY #90 tabs 10/25/24 nicotine 10 mg inhalation cartridge 1 mg inhalation Q2H PRN anxiety 10/25/24 #168 ea nicotine 10 mg/mL nasal spray 1 spray intranasal Q10-60M PRN 10/31/24 (Nicotrol NS) nicotine cravings #40 mL levomilnacipran 80 mg capsule,24 80 mg PO DAILY #90 caps 04/11/25 hr,extended release (Fetzima) varenicline tartrate 1 mg tablet 1 mg PO BID #56 tabs 04/23/25 (Chantix Continuing Month Box) dextroamphetamine-amphetamine 20 30 mg (1.5 x 20 mg) PO BID #90 tabs 06/01/25 mg tablet ketorolac 10 mg tablet 10 mg PO TID 5 days #15 tabs 06/19/25 ondansetron HCl 4 mg tablet 4 mg PO Q6H #10 tabs 06/19/25 Allergies Allergy/AdvReac Type Severity Reaction Status Date / Time codeine Allergy Severe airway Verified 10/25/24 15:04 swelling haloperidol Allergy Severe throat Verified 10/25/24 15:04 swelling dexamethasone Allergy Intermediate crawling Verified 10/25/24 15:04 out of her skin Penicillins Allergy Unknown Verified 10/25/24 15:04 Review of Systems Status of ROS Reports: 10 or more systems reviewed and unremarkable except as noted in History and below Narrative Constitutional: No fevers, no weight gain or loss. Eyes: No discharge. No vision changes. HENT: No congestion, no sore throat, no ear pain. Cardiovascular: No chest pain, no palpitations. Respiratory: No shortness of breath, no wheezes, no cough. Gastrointestinal: No diarrhea. Crampy abdominal pain with nausea and some vomiting. Genitourinary: No dysuria, no hematuria. Musculoskeletal: Normal range of motion. Skin: No rashes, no pruritis. Neurological: No dizziness, weakness, sensory change, speech change. Endo/Heme/Allergies: No bruising or bleeding. No polydipsia. Pysch: no suicidality, no anxiety, no insomnia. All other systems reviewed and are negative. [facility] Medical History (Updated 06/19/25 @ 20:42 by Ab Queen MD) Pain of both breasts ?N64.4 - Mastodynia (ICD-10) Surgical History History of tonsillectomy ?Z90.89 - Acquired absence of other organs (ICD-10) History of laparoscopy ?Z98.890 - Other specified postprocedural states (ICD-10) Social History What is your current living situation?: I presently have a place to live Problems where you live: no known problems In the past 12 months, utilities in danger of being shut off: no In past 12 months, lack of transportation kept you from medical appts, meetings, work, or getting things needed for daily living: no How hard is it for you to pay for the very basics like food, housing, medical care, and heating: not very hard In the past 12 mos, have been you worried that your food would run out before you had money to buy more?: never true In the past 12 mos, the food you bought just didn't last and you didn't have money to buy more?: never true Are you following a diet prescribed by a doctor: No Are you following a special diet: No Do you want help finding or keeping work or a job: I do not need or want help Smoking Status: Current every day smoker Second hand tobacco smoke exposure: Yes How often do you have a drink containing alcohol: 2-4 times a month How often do you have six or more drinks on one occasion: Never AUDIT-C Alcohol total score: 2 Non-prescribed substance use: denies use How often does anyone, including family, friends and others, physically hurt you: never How often does anyone, including family, friends and others, insult or talk down to you: never How often does anyone, including family, friends and others, threaten you with harm: never How often does anyone, including family, friends and others, scream or curse at you: never Exam Narrative: Exam Narrative: Constitutional: Well-developed, well-nourished, no acute distress. HEENT: Normocephalic, atraumatic. Neck: Normal range of motion. Nontender. Supple. Heart: Regular. No murmurs. Normal rate. Intact distal pulses. Lungs: Clear to auscultation. No chest discomfort. No wheezes, rhonchi, or rales. Abdomen: Normal bowel sounds. Mild tenderness diffusely throughout the abdomen. Nontender. No rebound tenderness. Genitalia: Deferred. Back: No midline tenderness. Normal range of motion. Extremities: Normal range of motion. No injury. Skin: Intact. No rash. Warm. No erythema or pallor. Neurologic: No altered sensation. No weakness. Alert and oriented. Psychiatric: No suicidality. No anxiety or depression. No insomnia. Nursing notes and vitals signs are reviewed. Const: Vital Signs, click to edit/add: Vital Signs - 24 hr 06/19/25 18:30 Temperature 97.5 F L Pulse Rate [Pulse Oximeter] 88 Respiratory Rate 16 Blood Pressure [Ri ght Upper Arm] 113/78 Pulse Oximetry 99 Oxygen Delivery Me thod Room Air Course Vital Signs Vital signs: Initial Vital Signs Temperature 97.5 F L 06/19/25 18:30 Temperature Source Oral 06/19/25 18:30 Pulse Rate 88 06/19/25 18:30 Respiratory Rate 16 06/19/25 18:30 Blood Pressure 113/78 06/19/25 18:30 Blood Pressure Mean 89 06/19/25 18:30 Blood Pressure Position Sitting 06/19/25 18:30 Pulse Oximetry 99 06/19/25 18:30 Oxygen Delivery Method Room Air 06/19/25 18:30 Vital Signs Temperature 97.5 F L 06/19/25 18:30 Pulse Rate 88 06/19/25 18:30 Respiratory Rate 16 06/19/25 18:30 Blood Pressure 113/78 06/19/25 18:30 Pulse Oximetry 99 06/19/25 18:30 Oxygen Delivery Method Room Air 06/19/25 18:30 Temperature 97.5 F L 06/19/25 18:30 Pulse Rate 88 06/19/25 18:30 Respiratory Rate 16 06/19/25 18:30 Blood Pressure 113/78 06/19/25 18:30 Pulse Oximetry 99 06/19/25 18:30 Oxygen Delivery Method Room Air 06/19/25 18:30 Medications Administered Medications: Discontinued Medications Generic Name Dose Route Start Last Admin Trade Name Freq PRN Reason Stop Dose Admin Ketorolac Tromethamine 15 mg 06/19/25 18:58 06/19/25 19:09 Ketorolac 30 Mg/Ml Inj IM 06/19/25 18:59 15 mg ONCE ONE Administration MDM - Abdominal Pain MDM Narrative Medical decision making narrative: This patient arrives with crampy abdominal pain. She has normal vital signs and her exam is essentially normal except for some mild tenderness in her abdomen currently. I did discuss lab and imaging options but the patient elected to have an enema and did receive an intramuscular injection of Toradol 15 mg. She did have an enema but did not really get any good results however she states that her pain is gone and she prefers to return home to use [id number] medicines to attend to her bowel regimen. I did provide Inst[facility] prescriptions for Toradol and Zofran. I also reviewed other [id number]-[id number] medicines that can be used as directed and needed for constipation. Discharge Plan Discharge Clinical Impression: Abdominal pain, Constipation Patient Disposition: Home, Self-Care Condition: Improved Additional Instructions: Use [id number] medicines as needed and directed for bowel regimen. Use prescribed medicines of Toradol and Zofran also as needed and directed for symptomatic relief. Follow up with MD return if symptoms are persistent or worsening. Prescriptions: New ondansetron HCl 4 mg tablet 4 mg PO Q6H Qty: 10 0RF ketorolac 10 mg tablet 10 mg PO TID 5 Days Qty: 15 0RF No Action valacyclovir 500 mg tablet 500 mg PO BID PRN nicotine 10 mg cartridge 1 mg inhalation Q2H PRN (Reason: anxiety) Qty: 168 10RF lamotrigine 150 mg tablet 150 mg PO DAILY Qty: 90 3RF ondansetron 4 mg tablet,disintegrating 4 mg PO Q8H PRN (Reason: nausea and vomiting) 4 Days Qty: 7 0RF Mirena 20 mcg/24 hours (7 yrs) 52 mg intrauterine device 1 device intrauterine ONCE Rx Instructions: as a single dose varenicline tartrate [Chantix Starting Month Box] 0.5 mg (11)- 1 mg (42) tablets,dose pack See Rx Instructions PO PER PKG DIR Qty: 53 0RF Rx Instructions: PO PER PKG DIR Nicotrol NS 10 mg/mL spray,non-aerosol 1 spray intranasal Q10-60M PRN (Reason: nicotine cravings) Qty: 40 2RF Rx Instructions: spray into each nostril; do not exceed 5mg (10 sprays)/hr and 40mg (80 sprays)/24hrs Fetzima 80 mg capsule,extended release 24 hr 80 mg PO DAILY Qty: 90 3RF varenicline tartrate [Chantix Continuing Month Box] 1 mg tablet 1 mg PO BID Qty: 56 3RF dextroamphetamine-amphetamine 20 mg tablet 30 mg PO BID Qty: 90 0RF Rx Instructions: administer doses at least 4-6 hours apart Follow Up/Referrals: Ab Alejo MD [Primary Care Provider, Family Practice] Stand Alone Forms: [employer] Info Instructions
== END 2025-06-19 21:06 | disposition home or self-care (01) ==
PROVIDERS: Emergency Provider Emergency Medicine Emergency Medical Services; PCP Family Medicine
DX: R10.9 Unspecified abdominal pain (principal); K59.00 Constipation, unspecified; R11.2 Nausea with vomiting, unspecified
CPT/HCPCS: 96372; 99283; 99284; J1885